=== PATIENT | male | born 1945 | race Caucasian/White ===

== ENCOUNTER 2019-02-25 14:21 | Outpatient (RCR) | payer MEDICARE, OTHER, SELFPAY | END 2019-03-25 00:01 | LOC: CR 14:21 | PROVIDERS: Family Provider Family Medicine; Visit Provider Internal Medicine Cardiovascular Disease | DX: I25.10 Atherosclerotic heart disease of native coronary artery without angina pectoris (principal) | CPT/HCPCS: 93798 ×11 ==

== ENCOUNTER 2019-04-01 14:36 | Outpatient (RCR) | payer MEDICARE, OTHER, SELFPAY | END 2019-04-25 23:59 | disposition home or self-care (01) | LOC: CR 14:36 | PROVIDERS: Family Provider Family Medicine; PCP Family Medicine; Referring Provider Thoracic Surgery (Cardiothoracic Vascular Surgery); Visit Provider Thoracic Surgery (Cardiothoracic Vascular Surgery) | DX: I25.10 Atherosclerotic heart disease of native coronary artery without angina pectoris (principal) | CPT/HCPCS: 93798 ==

== ENCOUNTER 2019-04-28 10:43 | Outpatient (RCR) | payer MEDICARE, OTHER, SELFPAY | END 2019-05-24 23:59 | disposition home or self-care (01) | LOC: CR 10:43 | PROVIDERS: Family Provider Family Medicine; PCP Family Medicine; Referring Provider Thoracic Surgery (Cardiothoracic Vascular Surgery); Visit Provider Thoracic Surgery (Cardiothoracic Vascular Surgery) | DX: I25.10 Atherosclerotic heart disease of native coronary artery without angina pectoris (principal) | CPT/HCPCS: 93798 ==

== ENCOUNTER 2019-05-26 11:22 | Outpatient (RCR) | payer MEDICARE, OTHER, SELFPAY | END 2019-06-24 23:59 | disposition home or self-care (01) | LOC: CR 11:22 | PROVIDERS: Family Provider Family Medicine; PCP Family Medicine; Referring Provider Thoracic Surgery (Cardiothoracic Vascular Surgery); Visit Provider Thoracic Surgery (Cardiothoracic Vascular Surgery) | DX: I25.10 Atherosclerotic heart disease of native coronary artery without angina pectoris (principal) | CPT/HCPCS: 93798 ==

== ENCOUNTER 2019-05-27 07:46 | Outpatient (CLI) | payer MEDICARE, OTHER, SELFPAY ==
--- NOTE | 2019-05-27 08:08 | MR_ITS ---
WS: [id number] MRI BRAIN WITH HIGH-RESOLUTION IMAGING THROUGH THE INTERNAL AUDITORY CANALS WITHOUT AND WITH CONTRAST HISTORY: RIGHT EAR TINNITUS, BILATERAL SENSORINEURAL HEARING LOSS COMPARISON: 05/11/2011 TECHNIQUE: Multiplanar, multisequence imaging is performed through the brain. Additional 3 mm imaging performed in multiple planes through the internal auditory canal. Postcontrast imaging with 17 ml's of Prohance. No acute intracranial hemorrhage, midline shift or mass effect. Focal area of hemosiderin deposition in the posterior LEFT parieto-occipital region. May be from a prior infarct. Moderate T2 and FLAIR signal hyperintensities throughout the white matter. Symmetric small vessel isc hemic disease. Additional small vessel ischemic disease in the maura bilaterally. Ventricles and extra-axial spaces are normal. No inferior displacement of cerebellar tonsils. Clivus and pituitary gland are normal. Internal and external auditory canals: Unremarkable. Cranial nerves VII and VIII complexes: Unremarkable. No enhancement or mass. Cerebellopontine angles: Normal. Paranasal sinuses: Mild mucoperiosteal thickening throughout the sinus cavities with no air-fluid lev els. Deviation of the nasal septum to the LEFT. Mastoid air cells: Normal. Calvarium and scalp: Normal. Visualized [place] and dural venous sinuses demonstrate no abnormality. Absent or hypoplasti c distal RIGHT vertebral artery. MR/MR iac's wo/w con* [id number] IMPRESSION: 1. Normal MRI internal auditory canals. No mass or abnormal enhancement. 2. Moderate chronic microvascular ischemic disease.
[2019-05-27 08:45] LABS: Blood Urea Nitrogen 13 mg/dL (8-23)
== END 2019-05-27 07:47 | disposition home or self-care (01) ==
LOC: RADWPI 07:53
PROVIDERS: Family Provider Family Medicine; PCP Family Medicine; Visit Provider Specialist
DX: I67.82 Cerebral ischemia (principal); H90.3 Sensorineural hearing loss, bilateral; H93.11 Tinnitus, right ear
CPT/HCPCS: 70553; 82565; 84520; A9579

== ENCOUNTER 2020-03-30 14:40 | Outpatient (RCR) | payer SELFPAY | END 2020-04-25 23:59 | disposition home or self-care (01) | LOC: CR 14:40 | PROVIDERS: Family Provider Family Medicine; PCP Family Medicine; Referring Provider Internal Medicine; Visit Provider Internal Medicine | DX: Z95.1 Presence of aortocoronary bypass graft (principal) ==

== ENCOUNTER 2020-04-27 12:26 | Outpatient (RCR) | payer SELFPAY | END 2020-05-23 23:59 | disposition home or self-care (01) | LOC: CR 12:26 | PROVIDERS: Family Provider Family Medicine; PCP Family Medicine; Referring Provider Internal Medicine; Visit Provider Internal Medicine | DX: Z95.1 Presence of aortocoronary bypass graft (principal) ==

== ENCOUNTER 2020-05-24 10:02 | Outpatient (RCR) | payer SELFPAY | END 2020-06-23 23:59 | disposition home or self-care (01) | LOC: CR 10:02 | PROVIDERS: Family Provider Family Medicine; PCP Family Medicine; Referring Provider Internal Medicine; Visit Provider Internal Medicine | DX: Z95.1 Presence of aortocoronary bypass graft (principal) ==

== ENCOUNTER → 2020-06-18 09:57 | Outpatient (BNVA) | payer MEDICARE, OTHER, SELFPAY | PROVIDERS: Family Provider Family Medicine; PCP Family Medicine; Visit Provider Internal Medicine Cardiovascular Disease | DX: R06.00 Dyspnea, unspecified (principal) | CPT/HCPCS: 80048; 83735; 83880 ==

== ENCOUNTER 2020-06-25 07:47 | Outpatient (CLI) | payer MEDICARE, OTHER, SELFPAY ==
[2020-06-25 08:37] VITALS: BMI 31.1
--- NOTE | 2020-06-25 08:37 | NMCV_ITS ---
NM ar perf SPECT r/s* [id number] Carlos Tom Age: 74 Gender: M : 1945 Exam Date: 06/25/2020 08:37 Ordering Phys: Susana Chamorro MD ([email or web address]) Technologist: FERNIE Steel Exam Location: [facility] Indications: CHEST PAIN STRESS TEST [facility] IMAGE PROTOCOL Rest/Stress 1 Lexiscan Day Radiopharmaceutical Dose (mCi) Administration Site Administered by Rest: Tc-99m 10.8 IV FERNIE Steel Sestamibi Stress:Tc-99m 32.8 IV FERNIE Steel Sestamibi Rest: 25-Jun-2020 60 Discovery 630 Stress: 25-Jun-2020 30 Discovery 630 0.4mg Lexiscan. Images obtained in supine and prone position. SPECT RESULTS Technical Quality: Excellent Raw Data Analysis: Normal Image Corrections: No attenuation or motion correction applied Summed Stress Score: 6 Summed Rest Score: 2 Summed Difference Score: 4 PERFUSION FINDINGS Small sized perfusion abnormality of mid inferior, mid anterolateral, apical lateral and apical mora on stress images. FUNCTIONAL RESULTS (calculated via Gated SPECT) Stress Image LV EF (%): 71 Stress EDV (mL):92 TID: 1.05 Stress ESV (mL):27 FUNCTIONAL FINDINGS: The left ventricle is normal in size. Transient Ischemia Dilatation of 1.1. There is normal left ventricular systolic function. The left ventricular ejection fraction is normal with a value of 71%. There is normal left ventricular wall thickening with no regional wall motion abnormality. Normal end diastolic and end systolic volumes. IMPRESSIONS 1. Small sized reversible perfusion abnormality of mid inferior, mid anterolateral, apical lateral and apical mora. 2. This likely represents small area of ischemia in circumflex artery territory. 3. Overall left ventricular systolic function is normal without regional wall motion abnormalities. 4. The left ventricular ejection fraction is normal with a value of 71%. 5. This finding is new when compared to old study dated 10/08/2018. Susana Chamorro MD (Electronically Signed) Final Date: 27 June 2020 22:18 S
--- NOTE | 2020-06-25 08:37 | ECG_ITS ---
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 Interpretive Statements NAME OF STUDY: LEXISCAN SESTAMIBI STRESS TEST INDICATION: Chest Pain PROCEDURE: At the baseline, the blood pressure was 135/74 mm Hg with a heart rate of 54 bpm and oxygen saturation of 95%. The electrocardiogram showed sinus bradycardia, normal axis and non specific ST depression. ??? The Lexiscan was infused over a period of 20 seconds. A total of 0.4 milligrams of Lexiscan was infused. The stress phase was continued for a total of 5 minutes. Heart rate at the end of the stress phase was 76 bpm, oxygen saturation of 97% with a blood pressure of 157/86 mm Hg. The EKG at the peak infusion revealed sinus rhythm with no significant ST-T wave changes. ??? Sestamibi was injected 20 seconds after the Lexiscan infusion. ??? Blood pressure at the end of the recovery phase was 150/80 mm Hg with a heart rate of 70 beats per minute and oxygen saturation of 96%. ??? CONCLUSION: 1. No significant EKG changes with the LexiScan infusion. 2. No LexiScan induced cardiac arrhythmia. Chest pain developed during infusion with radiation to neck and left arm and resolved by discharge. 3. Normal blood pressure and heart rate response. 4. Sestamibi/sestamibi perfusion scan pending; see separate report. Electronically Signed On 06-27-2020 21:29:18 CDT by Susana Chamorro M.D. [id number]
[2020-06-25] MEDS: regadenoson 0.4 Mg/5 ml Syringe IVP (10:20)
[2020-06-25] MEDS: aminophylline 25 mg/mL SDV 10 mL IVP (10:27)
[2020-06-25 10:52] VITALS: BP 150/80; PULSE 70
--- NOTE | 2020-06-25 10:54 | PC.NURSE ---
added notes to stress test as pt experienced side effects. ended up giving 1 dose of aminophylline and pt stated his pain was going away and felt much better. ended stress test with no symptoms stated by the patient.
== END 2020-06-25 07:48 | disposition home or self-care (01) ==
LOC: CDL 07:50
PROVIDERS: PCP Family Medicine; Visit Provider Internal Medicine Cardiovascular Disease
DX: R07.9 Chest pain, unspecified (principal); Z95.1 Presence of aortocoronary bypass graft
CPT/HCPCS: 78452; 93017; A9500; J0280; J2785

== ENCOUNTER → 2020-07-16 09:47 | Outpatient (BNVA) | payer MEDICARE, OTHER, SELFPAY | PROVIDERS: PCP Family Medicine; Visit Provider Internal Medicine Cardiovascular Disease | DX: Z20.822 Contact with and (suspected) exposure to COVID-19 (principal) | CPT/HCPCS: 87635 ==

== ENCOUNTER 2020-07-19 11:56 | Outpatient (CLI) | payer MEDICARE, OTHER, SELFPAY ==
[2020-07-19 12:40] LABS: Basophils % 0.6 %; Eosinophils % 0.6 %; Hematocrit 34.5 % (42.0-52.0); Hemoglobin 11.5 g/dL (11.7-16.6); Lymphocytes # 1.5 10^3/uL (0.8-4.8); Lymphocytes % 44.1 %; Mean Corpuscular HGB Conc 33.3 g/dL (30.0-36.0); Mean Corpuscular Hemoglobin 34.7 pg (28.0-34.0); Mean Corpuscular Volume 104.2 fL (80-94); Mean Platelet Volume 11.4 fL (7.4-10.4); Monocytes # 0.9 10^3/uL (0.2-0.9); Monocytes % 26.1 %; Nucleated Red Blood Cells % 0 %; Platelet Count 168 10^3/cmm (130-400); Red Blood Count 3.31 10^6/uL (4.1-5.3); Red Cell Distribution Width 12.6 % (12.1-15.1); White Blood Count 3.3 10^3/uL (4.0-10.0)
[2020-07-19 12:48] LABS: Neutrophils # 0.92 10^3/uL (1.8-7.7)
[2020-07-19 13:03] LABS: Blood Urea Nitrogen 21 mg/dL (8-23); Calcium 8.9 mg/dL (8.5-10.5); Carbon Dioxide 22 mmol/L (22-29); Chloride 108 mmol/L (98-107); Glucose 126 mg/dL (65-115); Osmolality Calculated 297 mOsm/kg (285-295); Sodium 141 mmol/L (136-145)
[2020-07-19 13:08] LABS: INR 1.06 (0.83-1.21); Prothrombin Time (Patient) 14.1 Seconds (12.0-15.1)
== END 2020-07-19 11:57 | disposition home or self-care (01) ==
PROVIDERS: PCP Family Medicine; Visit Provider Internal Medicine Cardiovascular Disease
DX: Z01.818 Encounter for other preprocedural examination (principal); I25.10 Atherosclerotic heart disease of native coronary artery without angina pectoris; Z95.1 Presence of aortocoronary bypass graft
CPT/HCPCS: 36415; 80048; 85025; 85610

== ENCOUNTER 2020-07-22 06:55 | Inpatient (IN) | payer MEDICARE, OTHER, SELFPAY ==
[2020-07-21 12:54] VITALS: BMI 31.3
[2020-07-22] VITALS (53 sets, daily range): BP systolic 112–158; BP diastolic 80–106; PULSE 64–126; RESP 17–36; TEMP 36.8; O2SAT 87–97; BMI 31.3
--- NOTE | 2020-07-22 07:00 | XACV_ITS ---
Exam Room: [facility] Ht: 173 cm Wt: 93 kg BSA: 2.15 m2 Gender: Male : 1945 Any Known Allergies: Iodine Exam Priority: Routine Procedure(s): Procedure Description: Diagnostic procedure Procedure Description: PCI procedure Procedure Description: YOUNG Graft Catheterization Procedure Description: Drug Eluting Coronary Stent Procedure Description: PTCA Procedure Description: Miscellaneous Procedure Description: ACT Procedure Description: Coronary Angiography Diagnostic Cath Status: Elective Diagnostic Findings * Left Main has no disease. * Circumflex has no disease. * Mid Left Anterior Descending to Distal Left Anterior Descending: severe 90% stenosis, LEONARDO: 2 flow. * Mid Left Anterior Descending: severe 90% stenosis, LEONARDO: 0 flow. * Distal Left Anterior Descending: severe 90% stenosis, LEONARDO: 3 flow. * Left Internal Mammary Artery to Distal Left Anterior Descending graft: patent. * Proximal Right Coronary Artery to Distal Right Coronary Artery: total occlusion, LEONARDO: 3 flow. * Ascending Aorta to Distal Right Coronary Artery graft: total occlusion, LEONARDO: 0 flow. * 1st Diagonal: significant 80% stenosis, LEONARDO: 3 flow. * Two grafts visualized. * Coronary angiography shows co-dominance. PCI Status: Elective Interventional Findings * 1st Diagonal: 80% stenosis treated with a AB MINI TREK 2.00X12 RX BALLOON, AB TREK 2.50X15 RX BALLOON, MDT R CORRINE 2.75X26 GEOVANNY, MDT R CORRINE 2.75X12 GEOVANNY, MDT NC EUPHORA RX 2.64N77IG BALLOON, MDT NC EUPHORA RX 3.14M61DC BALLOON, and MDT NC EUPHORA RX 3.95Y50KU BALLOON. 0% residual stenosis, LEONARDO: 3 flow. Conclusions 1. There is total occlusion coronary artery disease with two vessel disease. 2. Two coronary grafts visualized: one graft patent, and one graft occluded. 3. 1st Diagonal was treated with a Balloon, Balloon, Drug Eluting Stent, Drug Eluting Stent, Balloon, Balloon, and Balloon. 4. Indication for left heart cath: Crippling angina, worsening of shortness of breath which is lifestyle limiting, abnormal stress test. Recommendations * 1-Return to inpatient for close monitoring and routine cath care 2-Risk factor modification for secondary prevention 3-Statin and aspirin 81 mg life--long, if tolerated 4-Patient was pre-loaded with 600 mg of Plavix, continue Plavix 75mg p.o. daily for at least one year. We will assess at the end of one year again to continue if further or not 5-Continue optimal medical management 6-Follow up with Dr. Chamorro in four weeks and your primary care in 10 days. Diagnostic RX Recommendation: PCI w/o planned CABG Pressures Phase:Rest AO : 203 / 143 ( 199 ) @ 7:18:00 AM 143 / 81 ( 111 ) @ 7:49:00 AM 98 / 73 ( 86 ) @ 8:00:00 AM 117 / 49 ( 33 ) @ 8:16:00 AM 110 / 78 ( 94 ) @ 8:20:00 AM 102 / 91 ( 87 ) @ 8:33:00 AM Clinical Evaluation EBL: 5mL-10mL Procedural Details Procedure Consent Obtained. Pre-Procedure Time Out. Identified patient by full name and date of as verbalized by the patient/guarantor. Does the consent match the physician's order: Yes. Accurate & Complete Informed Consent: Yes. Inpatient/Outpatient History & Physical on Chart: Yes. If H&P is completed, is and addenduem needed: No; If yes, is the addendum complete: N/A. Visualize and Verify Site with Patient/Guarantor: N/A. Relevant Radiology Images available: Yes. Pre-op teaching completed and patient verbalized understanding. The risks, benefits, and alternatives of sedation and/or procedure were discussed by physician. The patient agrees to continue. Procedure started. [facility] Clinical Fraility Score: 3: Managing Well. 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 Chest Pain Symptom Assessment: Typical Angina Symptoms. Cardiovascular Instability: No. Correct patient, site and procedure confirmed by cath team. Current diagnosis: Stable angina. PERRLA. 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 Lungs clear x 5 lobes. IV Site on Arrival: 20 gauge in the left anticubital. IV Fluids: D5/.45% NaCl at KVO. 0 mL infused prior to pharmaceutical laboratory technician. Pre Procedural Pulses: bilateral dorsalis pedis was Doppled. Pre Procedural Pulses: bilateral posterior tibial was Doppled. Pre Procedural Pulses: bilateral radial was 1+. Oxygen started at 2liters/min via nasal canula. bilateral groins was prepped with chloroprep then draped in the usual sterile fashion. right radial was prepped with chloroprep then draped in the usual sterile fashion. Equipment: 6F - Radial. ACIST Manifold Kit Model BT 2000. Cardiac Cath Pack. Heparinized Saline (2 units/mL), 1000 mL bag. Physician arrived. Baseline sample Acquired. HR: 92 BPM. Physician scrubbed in. Immediate Pre-Procedure Time Out. Correct Patient: Yes; Correct Procedure: Yes; Correct Site: Yes; Correct Patient Position: Yes; Correct Supplies: Yes; Dried Flammable Prep: Yes; Blood Products Available: No;. Lidocaine 1% infiltrated to the right groin. Arterial access obtained with micropuncture set. A 6 citizen of [place] JL4 catheter in over wire. Multiple views taken of left coronary artery. Catheter out. A 6 [place] JR4 catheter in over wire. Catheter redirected to the YOUNG. Catheter out. [place] wire inserted. IM catheter inserted. Glidewire inserted. Wire and catheter out. A 6 citizen [place] JR4 catheter in over wire. Glidewire inserted. Wire out. Catheter out. 6 [place] XB 3.5 guide catheter was inserted over the wire. Inflation number : 1 A AB MINI TREK 2.00X12 RX BALLOON was prepped and advanced across the 1st Diag , then inflated to 14 NEYMAR for 0:20 seconds. Inflation number: 2 The AB MINI TREK 2.00X12 RX BALLOON was reinflated across the 1st Diag, to 14 NEYMAR for 0:23 seconds. 2.75mm x 26mm Stent inserted but removed undeployed and intact. Inflation number : 3 A AB TREK 2.50X15 RX BALLOON was prepped and advanced across the 1st Diag , then inflated to 14 NEYMAR for 0:25 seconds. Inflation number: 4 The AB TREK 2.50X15 RX BALLOON was reinflated across the 1st Diag, to 14 NEYMAR for 0:18 seconds. Inflation number: 5 The AB TREK 2.50X15 RX BALLOON was reinflated across the 1st Diag, to 12 NEYMAR for 0:15 seconds. Inflation number: 6 The AB TREK 2.50X15 RX BALLOON was reinflated across the 1st Diag, to 15 NEYMAR for 0:08 seconds. Inflation number: 7 The AB TREK 2.50X15 RX BALLOON was reinflated across the 1st Diag, to 10 NEYMAR for 0:06 seconds. Balloon out. Inflation Number : 8 A MDT R CORRINE 2.75X26 GEOVANNY -Lot Number# [id number] was prepped and advanced across the 1st Diag. The stent was deployed at 14 NEYMAR for 0:33 seconds. Stent balloon expiration date: 07/21/2021. Stent balloon out over wire. 2.75mm x 12mm stent inserted but removed intact. [place] wire out. Runthrough wire inserted. Inflation Number : 9 A MDT R CORRINE 2.75X12 GEOVANNY -Lot Number# [id number] was prepped and advanced across the 1st Diag. The stent was deployed at 18 NEYMAR for 0:30 seconds. Stent expiration date: 03/16/2022. Stent balloon out over wire. Inflation number : 10 A MDT NC EUPHORA RX 2.31L00TP BALLOON was prepped and advanced across the 1st Diag , then inflated to 14 NEYMAR for 0:21 seconds. Inflation number: 11 The MDT NC EUPHORA RX 2.77L46XE BALLOON was reinflated across the 1st Diag, to 16 NEYMAR for 0:27 seconds. Inflation number: 12 The MDT NC EUPHORA RX 2.72Z36HV BALLOON was reinflated across the 1st Diag, to 20 NEYMAR for 0:27 seconds. Balloon out. Inflation number : 13 A MDT NC EUPHORA RX 3.12C60CC BALLOON was prepped and advanced across the 1st Diag , then inflated to 16 NEYMAR for 0:25 seconds. Inflation number: 14 The MDT NC EUPHORA RX 3.95Q95WJ BALLOON was reinflated across the 1st Diag, to 19 NEYMAR for 0:39 seconds. Balloon out. Inflation number : 15 A MDT NC EUPHORA RX 3.07H76SH BALLOON was prepped and advanced across the 1st Diag , then inflated to 16 NEYMAR for 0:35 seconds. Inflation number: 16 The MDT NC EUPHORA RX 3.66D13FR BALLOON was reinflated across the 1st Diag, to 14 NEYMAR for 0:29 seconds. Balloon out. Fluids increased to 100ml/hr. Everything out. Sheath(s) sutured into position with 2-0 silk and sterile 4x4's and Op-site applied over the site. No oozing or signs and symptoms of hematoma noted. Arterial sheath flushed and connected to tranducer and pressure bag with heparinized saline. A Suture was successful obtaining hemostatsis at the Right Femoral artery insertion site. Post Procedure: Pulses reassessed and unchanged. PERRLA. 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 No VTE prophylaxis required. Total IV fluids: 250 mL. Contrast type used: Omnipaque 300 mgI/mL, 500 mL bottle. PCI Indication: NSTE. Post-op diagnosis: Severe CAD. Complications: None. Estimated blood loss: 5mL-10mL. Medication's Wasted: Nitro = 49.8 mg. Vital chart was stopped. Procedure completed. Patient transferred by bed to 1st floor. ACT drawn. Results 219 seconds. Therapeutic limits - pre-heparin administration 90-150 seconds and monitoring heparin during a vascular procedure >250 seconds. Medication's Wasted: Heparin = 3000 units. Access Site Site: Right Femoral artery Sheath Size: 6 Fr Hemostasis Method: Suture Hemostasis Success: Successful Procedure Medications Start: 7:44 AM Stop: 7:44 AM Medication: Versed Amount: 1 mg Route: I.V. Start: 7:44 AM Stop: 7:44 AM Medication: Fentanyl Amount: 50 mcg Route: I.V. Start: 8:03 AM Stop: 8:03 AM Medication: Versed Amount: 1 mg Route: I.V. Start: 8:03 AM Stop: 8:03 AM Medication: Fentanyl Amount: 50 mcg Route: I.V. Start: 8:31 AM Stop: 8:31 AM Medication: Nitrogylcerin Amount: 2 Sprays Start: 8:44 AM Stop: 8:44 AM Medication: Heparin Amount: 5000 units Route: I.V. Start: 8:50 AM Stop: 8:50 AM Medication: Versed Amount: 1 mg Route: I.V. Start: 8:51 AM Stop: 8:51 AM Medication: Heparin Amount: 3000 units Route: I.V. Start: 9:00 AM Stop: 9:00 AM Medication: Versed Amount: 1 mg Route: I.V. Start: 9:01 AM Stop: 9:01 AM Medication: Fentanyl Amount: 50 mcg Route: I.V. Start: 9:16 AM Stop: 9:16 AM Medication: Fentanyl Amount: 50 mcg Route: I.V. Start: 9:44 AM Stop: 9:44 AM Medication: Versed Amount: 1 mg Route: I.V. Start: 9:44 AM Stop: 9:44 AM Medication: Fentanyl Amount: 50 mcg Route: I.V. Start: 9:45 AM Stop: 9:45 AM Medication: Nitrogylcerin Amount: 2 Sprays Route: S.L. Start: 9:50 AM Stop: 9:50 AM Medication: Versed Amount: 1 mg Route: I.V. Start: 9:50 AM Stop: 9:50 AM Medication: Fentanyl Amount: 50 mcg Route: I.V. Start: 9:57 AM Stop: 9:57 AM Medication: Heparin Amount: 2000 units Route: I.V. I, the attending physician, have reviewed and verified all procedure medications. Yes, all medications given per verbal order History/Risk Factors Hypertension: Yes Dyslipidemia: No Peripheral Arterial Disease (PAD): No Myocardial Infarction (AR): No Obesity: No Renal Disease: No Tobacco Use: Former Prior Interventions PCI: No CABG: No Valve Surgery: No Report Signatures Finalized by Martha Figueroa MD on 08/02/2020 09:13 PM
--- NOTE | 2020-07-22 07:37 | W.PM.OPSFHP ---
Same Day Surgery H&P Indication for Procedure/HPI DATE OF PROCEDURE: July 22, 2020 CHIEF COMPLAINT/INDICATIONFOR SURGICAL PROCEDURE: Chest pain and anginal-like symptoms despite of optimization of medicine PREOP DIAGNOSIS: Angina, abnormal stress test in patient with CABG PLANNED PROCEDRUE: Operation Date: 07/22/20 07:00 Proposed Procedures p left Cardiac Catheterization 15612 r07.89(Left) - Martha Figueroa MD 74-year-old male past medical history significant for hypertension hyperlipidemia chronic anemia with baseline hemoglobin between 9-11 diabetes mellitus and history of CABG in 2019 for worsening of angina on daily basis despite of optimization of medicine underwent stress test which showed small area of reversibility in the inferior and lateral anterolateral aspects of the left ventricle was referred to us for left heart cath by Dr. Chamorro since his chest pain is not going away and getting worse day by day. He is on beta-rosy statin ARB Lasix spironolactone and isosorbide mononitrate. I have personally explained all risk benefit and alternative for the procedure. Patient understand dual antiplatelet therapy to be continued for at least 1 year. He understand risk for major minor bleed requiring transfusion, risk for stroke arrhythmia urgent emergent bypass surgery, risk of . He would like to proceed with it. Medications/Allergies* Home Medications Medication Instructions Recorded Confirmed Type fluticasone 500 mcg-salmeterol 50 1 inh INHALATION BID 05/08/19 07/21/20 History mcg/dose blistr powdr for inhalation glimepiride 4 mg tablet 4 mg PO BID tab 05/08/19 07/21/20 History ipratropium 20 mcg-albuterol 100 1 puff INHALATION Q6H 05/08/19 07/21/20 History mcg/actuation mist for inhalation losartan 100 1 tab PO DAILY 05/08/19 07/21/20 History mg-hydrochlorothiazide 25 mg tablet metformin 500 mg tablet 500 mg PO BID 05/08/19 07/21/20 History omeprazole 20 mg capsule,delayed 20 mg PO DAILY 05/08/19 07/21/20 History release simvastatin 40 mg tablet 40 mg PO DAILY 05/08/19 07/21/20 History spironolactone 25 mg tablet 25 mg PO DAILY 05/08/19 07/21/20 History tamsulosin 0.4 mg capsule 0.4 mg PO DAILY 05/08/19 07/21/20 History Allergies/Adverse Reactions Allergy/AdvReac Type Severity Reaction Status Date / Time morphine Allergy Unknown ADR/ALGY-Pa Verified 04/21/20 09:38 lpitations iodine Allergy Unknown Verified 07/08/20 11:27 Current Medications: Generic Name Dose Route Start Last Admin Trade Name Freq PRN Reason Stop Dose Admin Sodium Chloride 1,000 mls @ 50 mls/hr 07/22/20 06:00 07/22/20 06:47 Sodium Chloride 0.9% IV 07/23/20 01:59 Not Given .Q20H ONE Pertinent History/Comorbid Conditions* Medical History (Updated 05/09/19 @ 12:07 by Manuel Davidson MD) ASHD (arteriosclerotic heart disease) Carotid stenosis, bilateral Diabetes Dizziness HTN (hypertension) Surgical History (Updated 05/09/19 @ 12:03 by Manuel Davidson MD) S/P CABG (coronary artery bypass graft) Two-vessel coronary bypass surgery Social History Smoking and tobacco status: former smoker Household members: family Marital status: service: No Current occupational status: retired Pertinent Exam Findings alert, oriented x 3 and regular rate & rhythm Conscious Sedation Assessment PATIENT ASSESSED PRIOR TO SEDATION, WITH NO CHANGE NOTED: Yes AIRWAY EVAL/ANESTHESIA PLAN: ASA II, Risks, benefits & alternatives of sedation and/or procedure discussed and Patient agrees to continue as planned Recommendations Surgery/Procedure today Coding Level of Care Code Acute Renewable Energy Engineer for Morelia Stauffer
[2020-07-22] MEDS: sodium chloride 0.9% 1,000 ML 100 ML IV (10:47)
--- NOTE | 2020-07-22 11:03 | ECG_ITS ---
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 Measurements Intervals Evans Rate: 100 P: 64 MO: 222 QRS: 22 QRSD: 105 T: 120 QT: 365 QTc: 472 Interpretive Statements SINUS TACHYCARDIA WITH FIRST DEGREE AV BLOCK INFERIOR MYOCARDIAL INFARCTION, PROBABLY OLD ST DEVIATION AND MODERATE T-WAVE ABNORMALITY, CONSIDER LATERAL ISCHEMIA Compared to ECG 11/27/2018 06:07:05 First degree AV block now present Myocardial infarct finding now present T-wave abnormality now present Possible ischemia now present Sinus rhythm no longer present Sinus arrhythmia no longer present Electronically Signed On 07-23-2020 7:46:05 CDT by Susana Chamorro M.D. [id number]
[2020-07-22] MEDS: clopidogrel 300 mg Tablet PO (11:08)
[2020-07-22] MEDS: nitroglycerin 0.4 mg sublingual Tablet SUBLINGUAL (11:08)
--- NOTE | 2020-07-22 11:10 | PC.CHAP ---
Pastoral Care Encounter/Spiritual Assessment Type of Contact [] Declined senior systems programmer visit [] Patient/Family/Request visit [] Outpatient visit [x] Follow-up visit [] Physician referral [] Code/Alert [x] Routine visit [] Staff referral [] Actively dying [] Patient sleeping [] Family support [] [] Out of room [] Palliative care [] [x] Receiving care in room [] Pre-surgical visit [] Trauma [] Long length of stay [] ICU visit [] Other: Relational/Emotional Strength [] Patient feels connected with others/family/visitors/staff [x] Distress [] Loneliness/isolation [] Abandonment Spirituality of Patient [] Person of Jaqueline [] Attends Mosque of their Jaqueline [] Believes in Prayer [] Reads Bible or Jainism materials [] There are Spiritual issues to be addressed Marine Geologist Interventions [] Prayer [] Active listening [] Non-anxious presence [] Spiritual/emotional support [] Crisis/trauma care [] Spiritual counseling [] Bereavement support [] Provided bereavement packet [] Provided Bible/devotional materials [] Provided toy/stuffed animal, coloring book to patient or family member [] Provided Communion [] Anointing/[place] [] Salvation [] Completed spiritual assessment [] Other: Impact on Illness or Injury [] Angry [] Fearful [] Anxious [] Often cries [] Exhaustion [] Unable to work [] Unable to attend religious [] Unable to walk/stand [] Unable to read [] Unable to drive [] Unable to eat/drink [] Unable to sleep [] Unable to be with family [] Patient intubated [] Other: Summary had visit with had jai bowens Follow-up visit Time spent with patient 10 mins
--- NOTE | 2020-07-22 11:11 | PC.NURSE ---
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
--- NOTE | 2020-07-22 11:23 | XACV_ITS ---
Exam Room: [facility] Ht: 173 cm Wt: 93 kg BSA: 2.15 m2 Gender: Male : 1945 Any Known Allergies: Iodine Exam Priority: Routine Procedure(s): Procedure Description: Diagnostic procedure Procedure Description: Coronary Angiography Diagnostic Cath Status: Urgent PCI Status: Urgent Conclusions 1. Selective angiogram performed to assess the patency of the diagonal branch which was intervened at this morning after patient continues to complain regarding chest pain shortness of breath along with pulmonary edema.Patient was brought to the Gravity Prospector. Right groin sheath was in place. Right groin sheath was exchanged with 6 Estonian sheath. Using XB guide angiogram was performed.Diagonal branch remains patent without any thrombosis. Good LEONARDO-3 flow was observed. Rest of anatomy as per report from this morning.. Recommendations * Continue post-cath care and medical management. Diagnostic RX Recommendation: medical therapy and/or counseling Pressures Phase:Rest AO : 167 / 114 ( 139 ) @ 10:49:00 AM Clinical Evaluation EBL: 5mL-10mL Procedural Details Identified patient by full name and date of as verbalized by the patient/guarantor. Does the consent match the physician's order: N/A Emergent; Informed Consent not obtained due to time critical life threat. Accurate & Complete Informed Consent: N/A Emergent; Informed Consent not obtained due to time critical life threat. Inpatient/Outpatient History & Physical on Chart: N/A Emergent; Informed Consent not obtained due to time critical life threat. If H&P is completed, is and addenduem needed: N/A Emergent; Informed Consent not obtained due to time critical life threat; If yes, is the addendum complete: N/A Emergent; Informed Consent not obtained due to time critical life threat. Visualize and Verify Site with Patient/Guarantor: N/A. Relevant Radiology Images available: N/A Emergent; Informed Consent not obtained due to time critical life threat. Pre-op teaching completed and patient verbalized understanding. The risks, benefits, and alternatives of sedation and/or procedure were discussed by physician. The patient agrees to continue. Procedure started. Patient brought back to production laborer due to chest pain. Correct patient, site and procedure confirmed by cath team. Current diagnosis: Chest Pain. PERRLA. Strong, equal hand pbx installer bilaterally. Lungs clear x 5 lobes. IV Site on Arrival: 20 gauge in the right anticubital. IV Fluids: 0.9% NaCl at KVO. 0 mL infused prior to production laborer. Oxygen started at 2liters/min via nasal canula. bilateral groins was prepped with chloroprep then draped in the usual sterile fashion. Baseline sample Acquired. HR: 100 BPM. Equipment: 6F - Femoral. Cardiac Cath Pack. ACIST Manifold Kit Model BT 2000. Heparinized Saline (2 units/mL), 1000 mL bag. Kit, Micropuncture. Physician arrived. Physician scrubbed in. Immediate Pre-Procedure Time Out. Correct Patient: Yes; Correct Procedure: Yes; Correct Site: Yes; Correct Patient Position: Yes; Correct Supplies: Yes; Dried Flammable Prep: Yes; Blood Products Available: No;. Sheath still in place from prior procedure. Lidocaine 1% infiltrated to the right groin. 6FR sheath exchanged for a new 6FR sheath. 6 syrian XB 3.5 guide catheter was inserted over the wire. Multiple views taken of left coronary artery. Guide catheter out. Sheath(s) sutured into position with 2-0 silk and sterile 4x4's and Op-site applied over the site. No oozing or signs and symptoms of hematoma noted. Arterial sheath flushed and connected to tranducer and pressure bag with heparinized saline. Post Procedure: Pulses reassessed and unchanged. PERRLA. Strong, equal hand pbx installer bilaterally. No VTE prophylaxis required. Complications: None. Post-op diagnosis: CAD. Estimated blood loss: 5mL-10mL. Procedure completed. Patient transferred by bed to 1st floor. Vital chart was stopped. Medication's Wasted: Lidocaine 1% = 18 mL. Medication's Wasted: Nitro = 49.8 mg. Medication's Wasted: Heparin = 1000 units. Procedure Medications Start: 11:50 AM Stop: 11:50 AM Medication: Nitrogylcerin Amount: 200 mcg Route: I.C. I, the attending physician, have reviewed and verified all procedure medications. Yes, all medications given per verbal order History/Risk Factors Hypertension: Yes Dyslipidemia: No Peripheral Arterial Disease (PAD): No Myocardial Infarction (DC): No Obesity: No Renal Disease: No Tobacco Use: Former Prior Interventions PCI: No CABG: No Valve Surgery: No Report Signatures Finalized by Martha Figueroa MD on 08/02/2020 09:43 PM
[2020-07-22] MEDS: nitroglycerin drip 50 MG/250 ML PREMIX IV (13:10)
--- NOTE | 2020-07-22 17:00 | PC.NURSE ---
sheath removed per telephone instructions from Dr. mckeon to obtain PTT if >45 pull sheath per protocol Sheath removed from right groin pressure held for 20 min v/s stable throughout patient remained alert oriented no hematoma noted
--- NOTE | 2020-07-22 17:30 | PC.NURSE ---
Addendum entered by Mandi Ardon RN 07/22/20 21:04: verbal instructions also obtained to start accu check and med sliding scale coverage and hold metformin Original Note: Dr mckeon to bedside to check on patient HR 125 patient experiencing SOB verbal instructions at bedside to give Metoprolol 50mg PO now give PRN xanax obtain EKG and 1 view chest xray give lasix 60mg IVP now up nitro from 10 to 15 RT called to bedside to place Bi pap and obtain ABG all orders carried out during lasix IVP patient had run of v tach and became symptomatic verbal instructions to obtain ICU bed for closer monitoring patient stabilizing
--- NOTE | 2020-07-22 17:53 | ECG_ITS ---
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 Measurements Intervals [place] Rate: 125 P: -72 NH: 140 QRS: -38 QRSD: 145 T: 37 QT: 324 QTc: 469 Interpretive Statements SINUS TACHYCARDIA WITH FREQUENT PVC'S POSSIBLE ANTERIOR MYOCARDIAL INFARCTION, OF INDETERMINATE AGE INFERIOR MYOCARDIAL INFARCTION,OF INDETERMINATE AGE ST DEPRESSION, CONSIDER SUBENDOCARDIAL INJURY [0.1+ mV ST DEPRESSION] Compared to ECG 07/22/2020 11:07:44 ST (T wave) deviation now present Sinus tachycardia no longer present First degree AV block no longer present T-wave abnormality no longer present Possible ischemia no longer present Myocardial infarct finding still present Electronically Signed On 07-23-2020 7:41:03 CDT by Susana Chamorro M.D. [id number] f
[2020-07-22] MEDS: isosorbide mononitrate ER 30 mg Tablet PO (17:55)
[2020-07-22] MEDS: metoprolol tartrate 25 mg Tablet PO ×2 (17:55→17:57)
[2020-07-22] MEDS: ALPRAZolam 0.25 mg Tablet PO (18:05)
--- NOTE | 2020-07-22 18:07 | XRR_ITS ---
PROCEDURE INFORMATION: Exam: XR Chest Exam date and time: 07/22/2020 6:23 PM Age: 74 years old Clinical indication: Device placement; Ett placement (vent status); Additional info: Shortness of breath TECHNIQUE: Imaging protocol: XR of the chest. Views: 1 view. COMPARISON: CR Chest 1 [place] [id number] 11/30/2018 4:52 AM FINDINGS: Lungs: Unremarkable. No consolidation. Pleural spaces: Unremarkable. No pleural effusion. No pneumothorax. Heart/Mediastinum: Unremarkable. No cardiomegaly. Bones/joints: Metallic sternotomy wires are in place. There is kyphoplasty in the L1 vertebral body There is nose clearly visible endotracheal tube present. XR/XR chest 1V portable [id number] IMPRESSION: 1. No acute findings. 2. Status post sternotomy 3. Kyphoplasty L1 vertebral body 4. An ET tube is not optimally visualized.
[2020-07-22] MEDS: FUROsemide 10 mg/mL SDV 10mL 60 MG IVP (18:13)
[2020-07-22 18:36] LABS: ABG PCO2 27.6 mmHg (35-45); Base Excess ABG -6.6 mmol/L (-2.0-2.0); Blood Gas Sample Type Arterial; Carboxyhemoglobin 0.7 %THgb (0.4-20.1); HCO3 ABG 16.9 mmol/L (22-26); HGB O2 Sat 95.5 % (95-100); Ionized Calcium Level - ABG 1.2 mmol/L (1.1-1.4); Methemoglobin 0.4 % (0.4-1.5); Oxygen Saturation ABG 96.6; PO2 ABG 81.4 mmHg (80.0-100.0); Potassium Level - ABG 4.5 mmol/L (3.5-5.0); Total Hemoglobin 12.7 g/dL (14-18)
[2020-07-22 18:37] LABS: Alveolar-Arterial Oxygen Gradi 21.7 mmHg (5-10); Blood Gas Operator Identificat ED; Blood Gas Sample Site Brachial, right; Oxygen Device BIPAP
--- NOTE | 2020-07-22 19:22 | P.PN_ITS ---
Subjective Subjective: Interval history: Post PCI patient started complaining of chest pain he was taken back to the Database Marketing Analyst noted to have patent diagonal stents. He was noted to have chronically occluded RCA mild distal circumflex has 90% stenosis which is small caliber vessel beyond the stenosis. Since it has collaterals from left to left we will left this for medical management. 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 Vitals/I&O/Wt Last Vital Signs Temp 98.2 F 07/22/20 06:34 Pulse 123 H 07/22/20 18:10 Resp 17 07/22/20 14:37 BP 152/94 07/22/20 14:00 Pulse Ox 94 07/22/20 18:10 07/22/20 07/22/20 07/22/20 06:59 14:59 22:59 Intake Total 2.75 / 2.75 Output Total 600 / 600 Balance -600 / -600 2.75 / -597.25 Weight last 48 hrs Weight 206 lb Weight 206 lb Physical Exam Narrative: EXAM NARRATIVE: GENERAL: Patient is alert, awake and oriented x3. Moderately distressed NECK: No jugular vein distension. HEENT: No cyanosis. No icterus. No pallor. HEART: Regular S1 and S2. No murmur, rub or gallop. LUNGS: Clear to auscultate bilaterally. ABDOMEN: Soft, nontender and nondistended. Positive bowel sounds. No guarding, rebound or tenderness. CENTRAL NERVOUS SYSTEM: Grossly nonfocal. EXTREMITIES: Lower extremities without edema bilaterally. A&P Assessment and plan (1) ASHD (arteriosclerotic heart disease): Status post drug-eluting stent to proximal to mid diagonal branch for significant 90% eccentric highly calcified stenosis. Post PCI patient was taken back to the Database Marketing Analyst due to recurrent chest pain noted to have patent stents. Patient has been loaded with 300 mg of Plavix. Later patient did fine however towards the evening patient went into respiratory distress. He was noted to be in pulmonary edema BiPAP was started IV Lasix was given he had short runs of ventricular tachycardia he was given metoprolol. Currently he is stabilizing blood pressure is stable he denies any chest pain and now on BiPAP he is feeling better hopefully with good diuresis left ventricular end-diastolic pressure will also reduce and he will start feeling better. We will continue to monitor him at this point we may will move him to ICU. Status: Acute (2) HTN (hypertension): Patient has been started on IV nitro drip due to moderately elevated blood pressure and pulmonary edema Status: Acute Qualifiers: Hypertension type: essential hypertension Qualified Code(s): I10 - Essential (primary) hypertension Attestations Medical Necessity Statement*: Require continuation hospitalization for above defined care Coding Level of Care Code Acute Stable Helper for Chg Fwd History Comprehensive Exam Comprehensive Medical Decision Making High Complexity Diagnoses ASHD (arteriosclerotic heart disease) I25.10 HTN (hypertension) I10 Hypertension type: essential hypertension
[2020-07-22 20:37] LABS: Glucose Point of Care 285 mg/dL (70-110)
--- NOTE | 2020-07-22 20:52 | PC.NURSE ---
patient transferred to ICU 12 patient alert oriented and in stable condition upon transfer all belonging sent with patient attempted to notify daughter Corrie no answer message left to return phone call
--- NOTE | 2020-07-22 21:09 | PC.NURSE ---
ICU arrival: Pt arrived to ICU at 2014, via bed as a CSU inhouse transfer. Accompanied by CSU nursing staff X2. Nursing staff X4 transferred pt into ICU bed without incident. Pt arrived on RM air with SPO2 status @ 86%, and was then placed on 4L NC, to which O2 sat increased up to 92-93%. Some c/o chest pain verbalized by pt, and nitro gtt was reinitiated. Right groin has some swelling at the site of where the sheath was placed/pulled earlier in dayshift. No bruising or saturation to dressing noted. MD Henry came to bedside for rounding of patient. No other orders received at this time. Personal effects include clothing, shoes, and cell phone and were all placed at bedside with pt. Room orientation completed, with instructions on use of call light.
--- NOTE | 2020-07-22 21:18 | PC.NURSE ---
CODE STATUS; RN discussed with patient regarding his personal wishes of code status. RN asked if in the event his heart was to stop beating, would he want life saving measures including CPR, Medications, and Intubation in efforts to revive him. Patient stated he wanted healthcare staff to try and do all that is necessary in efforts to save his life, if in the event a code were to happen. Conversation, and a new order was placed inside patient chart to reflect these wishes.
--- NOTE | 2020-07-22 21:18 | PC.NURSE ---
CODE STATUS; RN discussed with patient regarding his personal wishes of code status. RN asked if in the event his heart was to stop beating, would he want life saving measures including CPR, Medications, and Intubation in efforts to revive him. Patient stated he wanted healthcare staff to try and safe him, and do all that is necessary in efforts to safe his life if in the event a code were to happen. Conversation, and a new order was placed inside patient chart to reflect those wishes.
[2020-07-22] MEDS: acetaminophen 325 mg Tablet 650 MG PO (21:58)
[2020-07-23] VITALS (65 sets, daily range): BP systolic 82–117; BP diastolic 65–85; PULSE 84–123; RESP 1–48; O2SAT 87–98
--- NOTE | 2020-07-23 04:40 | PC.NURSE ---
New Orders; RN phoned MD Henry to update on pt status. 200mL u/o and new lung sounds throughout. Patient stated he believed his pain located in his chest, was pretty close in nature to what he felt at time of previous cardiac episode the day prior. New orders given for Fentanyl IVP Q2-4Hr as needed, Lasix IVP Once, and to complete a bladder scan. 154mL in urine found in bladder through scan.
[2020-07-23] MEDS: fentaNYL 50 mcg/mL INJ 2mL 25 MCG IVP ×3 (04:48→16:13)
[2020-07-23] MEDS: FUROsemide 10 mg/mL SDV 10mL 60 MG IVP (04:52)
[2020-07-23] MEDS: ondansetron 2 mg/ML SDV 2 mL 4 MG IVP ×2 (05:59→20:29)
--- NOTE | 2020-07-23 06:33 | PC.NURSE ---
New orders; Patient was placed on Bipap per MD Henry orders for about 1hr in total overnight. RN then found pt taking bipap mask off, and c/o n/v suddenly. Bipap was removed, and pt was placed back on 4L NC. New orders for Zofran, and to change pt diet order to NPO, except sips of water.
--- NOTE | 2020-07-23 07:28 | ECG_ITS ---
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 Measurements Intervals [place] Rate: 93 P: 18 SD: 181 QRS: 108 QRSD: 110 T: 75 QT: 366 QTc: 456 Interpretive Statements SINUS RHYTHM WITH OCCASIONAL VENTRICULAR PREMATURE COMPLEXES MARKED RIGHT AXIS DEVIATION [QRS AXIS > 100] POSSIBLE ANTEROLATERAL MYOCARDIAL INFARCTION [30 ms Q WAVE IN I/aVL/V3-V6], OF INDETERMINATE AGE Compared to ECG 07/22/2020 18:00:52 Ventricular premature complex(es) now present Right-axis deviation now present Sinus tachycardia no longer present ST (T wave) deviation no longer present Myocardial infarct finding still present Electronically Signed On 07-23-2020 19:17:54 CDT by Goreg Morton M.D. [email or web address]/store/[id number]
--- NOTE | 2020-07-23 07:28 | XR_ITS ---
WS: [id number] Exam: XR chest 1V portable [id number] Date/Time of Exam: 07/23/2020 7:35 AM Reason For Exam: chf Comparison 07/22/2020. Infiltrate in the right lower lobe has developed since the previous exam. Heart size is normal. Pulmo nary vascularity is increased. There are multiple ill-defined nodules scattered throughout both lungs with coarsening of interstitial markings. No pleural effusions or pneumothorax. The mediastinum is n ot widened. Status post CABG surgery. Monitoring leads superimpose the chest. XR/XR chest 1V portable [id number] IMPRESSION: 1. Infiltrate in the right basal region. 2. Increased pulmonary vascularity with reticular nodular a pulmonary pattern. Septic pulmonary emboli or metastatic pulmonary disease could have this appeara nce. Further workup with contrast CT scanning of the chest might be a considera tion.
[2020-07-23 07:30] LABS: Glucose Point of Care 258 mg/dL (70-110)
--- NOTE | 2020-07-23 07:32 | P.PN_ITS ---
Subjective Subjective: Interval history: Patient complained of worsening of shortness of breath after he completed bedrest, he was noted to be in pulmonary edema. Started on BiPAP given IV Lasix, nitro drip was continued. He was also moved to ICU for close monitoring. Overnight he did fine except early this morning he started having more nausea. Urine output total -450. Vitals/I&O/Wt Last Vital Signs Temp 98.2 F 07/22/20 06:34 Pulse 97 07/23/20 07:11 Resp 18 07/23/20 07:06 BP 118/83 07/22/20 20:02 Pulse Ox 97 07/23/20 07:06 07/22/20 07/23/20 07/23/20 22:59 06:59 14:59 Intake Total 1136.142 / 1136.142 300 / 1436.142 Output Total 650 / 1925 150 / 2075 450 / 450 Balance 486.142 / -788.858 150 / -638.858 -450 / -450 Weight last 48 hrs Weight 206 lb Weight 206 lb Physical Exam Narrative: EXAM NARRATIVE: GENERAL: Patient is alert, awake and oriented x3. Moderately distressed NECK: No jugular vein distension. HEENT: No cyanosis. No icterus. No pallor. HEART: Regular S1 and S2. No murmur, rub or gallop. LUNGS: Clear to auscultate bilaterally. ABDOMEN: Soft, nontender and nondistended. Positive bowel sounds. No guarding, rebound or tenderness. CENTRAL NERVOUS SYSTEM: Grossly nonfocal. EXTREMITIES: Lower extremities without edema bilaterally. A&P Assessment and plan (1) ASHD (arteriosclerotic heart disease): For worsening of unstable angina patient is status post drug-eluting stent to proximal to mid diagonal branch for significant 90% eccentric highly calcified stenosis. Post PCI patient was taken back to the Wash Crew Person due to recurrent chest pain noted to have patent stents. Patient has been loaded with 300 mg of Plavix. Later patient did fine however towards the evening patient went into respiratory distress. He was noted to be in pulmonary edema BiPAP was started IV Lasix was given he had short runs of ventricular tachycardia he was given metoprolol. Currently he is stabilizing blood pressure is stable he denies any chest pain and now on BiPAP he is feeling better hopefully with good diuresis left ventricular end-diastolic pressure will also reduce and he will start feeling better. We will continue to monitor him at this point we may will move him to ICU. On today's visit patient sitting by the bedside he had rough muskrat trapper with described chest pain and nausea. His breathing is better. There is also question regarding prostate enlargement and retention of the urine. We will ask for bladder scan. I will get x-ray chest CBC BMP and BNP. He has been given another round of IV Lasix. Twelve-lead EKG will be obtained. Currently he appeared to be stable. Patient has extensive coronary artery disease with highly calcified vessel he has CABG in 2019. During this angiogram he was noted to have chronically occluded SVG to RCA RCA is highly calcified proximally occluded vessel not amenable to intervention. Diagonal was very torturous highly calcified vessel not amenable to atherectomy however we did extensive balloon angioplasty followed by 2 overlapping stent placement postdilated at high NEYMAR with noncompliant balloon for proper approximation. We will continue aspirin Plavix I will add ranolazine patient has extensive multiple tandem lesion in the LAD. Dr. Mejia's note confirmed the high calcification of the vessels which in his case unfortunately is a long-term problem. He also has small vessel disease and element of anxiety. At this point I will add ranolazine. Continue to optimize medicine including beta-rosy isosorbide mononitrate. Further plan will be advised as per progress of the patient. I have detailed discussion with the patient in yesterday with his family. Their full understanding of the disease. 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
[2020-07-23] MEDS: isosorbide mononitrate ER 30 mg Tablet PO ×2 (08:51→18:19)
[2020-07-23] MEDS: ranolazine (12HR) 500 mg Tablet PO ×2 (08:51→18:19)
[2020-07-23] MEDS: tamsulosin 0.4 mg Capsule PO (08:51)
[2020-07-23 08:52] LABS: Blood Urea Nitrogen 30 mg/dL (8-23); Calcium 8.7 mg/dL (8.5-10.5); Carbon Dioxide 18 mmol/L (22-29); Chloride 101 mmol/L (98-107); Glucose 226 mg/dL (65-115); NT Pro B Type Natriuretic Pept 16832 pg/mL (0-125); Osmolality Calculated 291 mOsm/kg (285-295); Sodium 134 mmol/L (136-145)
[2020-07-23] MEDS: FUROsemide 20 mg Tablet PO (08:52)
[2020-07-23] MEDS: metoprolol tartrate 25 mg Tablet PO ×2 (08:52→18:20)
[2020-07-23 09:03] LABS: Basophils % 0.1 %; Hematocrit 40.2 % (42.0-52.0); Hemoglobin 13.4 g/dL (11.7-16.6); Lymphocytes # 0.9 10^3/uL (0.8-4.8); Lymphocytes % 5.5 %; Mean Corpuscular HGB Conc 33.3 g/dL (30.0-36.0); Mean Corpuscular Hemoglobin 34.9 pg (28.0-34.0); Mean Corpuscular Volume 104.7 fL (80-94); Mean Platelet Volume 11.7 fL (7.4-10.4); Monocytes # 3.5 10^3/uL (0.2-0.9); Monocytes % 21.2 %; Neutrophils # 11.79 10^3/uL (1.8-7.7); Neutrophils % 72.2 %; Nucleated Red Blood Cells % 0 %; Platelet Count 244 10^3/cmm (130-400); Red Blood Count 3.84 10^6/uL (4.1-5.3); Red Cell Distribution Width 13.2 % (12.1-15.1); White Blood Count 16.3 10^3/uL (4.0-10.0)
[2020-07-23 11:04] LABS: Glucose Point of Care 238 mg/dL (70-110)
[2020-07-23 16:36] LABS: Glucose Point of Care 180 mg/dL (70-110)
--- NOTE | 2020-07-23 17:30 | CTR_ITS ---
PROCEDURE INFORMATION: Exam: CT Head Without Contrast Exam date and time: 07/23/2020 5:35 PM Age: 74 years old Clinical indication: Altered mental status/memory loss; Confusion or disorientation; Additional info: AMS TECHNIQUE: Imaging protocol: Computed tomography of the head without contrast. Total images: 192 Radiation optimization: All CT scans at this facility use at least one of these dose optimization techniques: automated exposure control; mA and/or kV adjustment per patient size (includes targeted exams where dose is matched to clinical indication); or iterative reconstruction. COMPARISON: CT head wo con* [id number] 10/02/2015 10:10 AM RADIATION DOSE METRICS: Total DLP (mGy-cm): 1640.61 FINDINGS: Brain: No evidence of active or acute intracranial pathologic process, hemorrhage, or trauma. Moderate small vessel ischemic disease with senile periventricular leukomalacia. No mass effect. No midline shift. Atrophic changes not inconsistent with the patient's chronological age. Cerebral ventricles: No ventriculomegaly. Bones/joints: Unremarkable. No acute fracture. Paranasal sinuses: Visualized sinuses are unremarkable. No fluid levels. Mastoid air cells: Visualized mastoid air cells are well aerated. Soft tissues: Unremarkable. Other findings: Vertebrobasilar arteriosclerosis. CT/CT head wo con* [id number] IMPRESSION: No evidence of active or acute intracranial pathologic process, hemorrhage, or trauma. Radiation Dose CTDIVOL = (mGy): DLP = 1640.61 (mGy-cm)
--- NOTE | 2020-07-23 17:30 | CTR_ITS ---
PROCEDURE INFORMATION: Exam: CT Chest Without Contrast; Diagnostic Exam date and time: 07/23/2020 5:35 PM Age: 74 years old Clinical indication: Dyspnea; Prior surgery; Surgery date: 6+ months; Surgery type: Cabg; Patient HX: C/O difficulty breathing; Additional info: Dyspnea, possible pna, septic embolic appearance? (ghulam) TECHNIQUE: Imaging protocol: Diagnostic computed tomography of the chest without contrast. Radiation optimization: All CT scans at this facility use at least one of these dose optimization techniques: automated exposure control; mA and/or kV adjustment per patient size (includes targeted exams where dose is matched to clinical indication); or iterative reconstruction. COMPARISON: CTA Chest-Pulmonary Emb [id number] 10/08/2018 3:35 PM RADIATION DOSE METRICS: Total DLP (mGy-cm): 902.41 FINDINGS: Lungs: There are calcified granulomas in both lungs. There is some patchy areas of ground-glass opacity in both lungs, mostly peripheral. . These may represent some infectious or inflammatory disease versus unusual distribution of edema. There are some areas of subsegmental atelectasis in both lungs. There is mild thickening of the interlobular septa which consistent with some interstitial edema Pleural spaces: There are small to moderate bilateral pleural effusions, larger on the right than on the left. Heart: Sternotomy wires and mediastinal surgical clips are present, consistent with previous coronary arterial bypass grafting. Aorta: Unremarkable. No aortic aneurysm. Lymph nodes: There are small paratracheal and AP window lymph nodes but no adenopathy. Spleen: The spleen demonstrates punctate calcifications, consistent with remote granulomatous organism exposure. Kidneys and ureters: This study was done without the use of intravenous contrast, however the imaged upper poles of both kidneys demonstrate dense cortical nephrograms and also some excreted contrast. Please correlate for any history of contrast administration for other procedures such as recent cardiac catheterization. The dense cortical nephrograms could indicate acute kidney injury. Further evaluation with appropriate laboratory studies is suggested. Bones/joints: Unremarkable. No acute fracture. Soft tissues: There is moderate bilateral gynecomastia. Other findings: There is kyphoplasty at L1 unchanged from previous. Chronic findings of kyphoplasty at L1 are again identified. CT/CT chest wo con [id number] IMPRESSION: 1. Mild interstitial edema and bilateral pleural effusions consistent with the clinical history of congestive failure. 2. Mild ground-glass opacities in both lungs which could represent infectious or inflammatory disease including viral infection. These are suggestive of but not entirely classic for COVID-19. 3. Persistent renal cortical nephrograms of uncertain age in etiology. Please correlate for any signs of renal insufficiency. COMMENTS: THIS REPORT CONTAINS FINDINGS THAT MAY BE CRITICAL TO PATIENT CARE. The findings were verbally communicated via telephone conference with HALLE FERRER at 6:27 PM CDT on 07/23/2020. The findings were acknowledged and understood. Radiation Dose CTDIVOL = (mGy): DLP = 902.41 (mGy-cm)
[2020-07-23] MEDS: piperacillin-tazobactam 3.375 GM in sodium chloride 0.9% (plus) 50 ML IV (20:30)
--- NOTE | 2020-07-23 20:35 | PM.CONSULT ---
Providers/Reason For Consult Consulting Physican/Specialty*: Hospitalist Reason for Consult*: Pneumonia, lung infiltrates Attending Physician: Martha Figueroa MD Primary Care Provider: Michael Garcia MD History of Present Illness History of Present Illness Pleasant 74-year-old gentleman with history of coronary disease, CABG in 2019, ischemic cardiomyopathy, DM 2, HLD, asthma, chronic dizziness (was told has BPPV by ENT) was admitted for assessment of management of worsening anginal symptoms and abnormal stress test. He underwent coronary angiography with stent deployment to proximal to mid diagonal branch due to 90% stenosis. Experiencing chest pain after the procedure, he was taken back to [facility], with stents found to be patent. He was subsequently noted with some dyspnea, shallow breaths, with concern for pulmonary edema received IV Lasix. ABG 7.4/27.6/81.4/16.9 on 40% FiO2. Breathing was supported with BiPAP. He subsequently also had nausea, vomited. This morning requiring nasal cannula oxygen support, 2-3 L, with noted leukocytosis 16.3, predominantly neutrophilic, sinus tachycardia. Afebrile. Reports mild cough. Denies chest pain. Reports with shortness of breath having some pain on inspiration which is somewhat radiating to his back. Reports while he was on BiPAP was having some phlegm secretion but could not spit it up and try to swallow it. Currently denies any phlegm production. Noted 10-15 beats of V. tach. Amiodarone was considered and ordered, however, he did not actually receive it. This morning his other labs include hemoglobin of 13.4, platelets 244. Sodium 134, potassium 5, chloride 101, bicarbonate 18, anion gap 20, BUN 30, creatinine 1.5. Glucose 226. Calcium 8.7, NT proBNP 16,832. He currently overall is feeling somewhat better. Nausea has resolved. He is still bothered by shortness of breath, pleuritic discomfort on inspiration. He denies headache, denies muscle aches or chills. Denies diarrhea. He denies any history of sleep apnea, denies history being told of snoring or stopping to breathe at night. Review of Systems Const: Reports: malaise; Denies: fever(s), chills or body aches Eyes: Reports: other (Reports chronic/recurrent vertigo, not currently.); Denies: change in vision or eye redness ENMT: Denies: throat pain, oral sores or ear or mastoid pain Card: Denies: chest pain, edema, pre-syncope or dyspnea on exertion Resp: Reports: dyspnea and pain on inspiration; Denies: productive cough, change in phlegm color or hemoptysis GI: Reports: nausea and vomiting; Denies: abdominal pain, diarrhea, constipation, hematochezia or melena : Denies: flank pain, difficulty urinating, urinary frequency or hematuria Musc: Denies: back pain, joint swelling or joint redness Skin/Breast: Denies: rash, sores or new lesions Neuro: Denies: headache(s), numbness in extremities, weakness in extremities, dizziness, confusion or seizure-like activity Endo: Denies: polyuria or polydipsia Simeon/Lymph: Denies: easy bleeding or purpura All/Imm: Denies: urticaria, throat swelling or tongue swelling Meds/Allergies Home Medications and Allergies Home Medications Medication Instructions Recorded Confirmed Last Taken Type fluticasone 500 mcg-salmeterol 50 1 inh INHALATION BID 05/08/19 07/21/20 07/21/20 08:00 History mcg/dose blistr powdr for inhalation glimepiride 4 mg tablet 4 mg PO BID tab 05/08/19 07/21/20 07/21/20 17:30 History ipratropium 20 mcg-albuterol 100 1 puff INHALATION Q6H 05/08/19 07/21/20 07/21/20 17:30 History mcg/actuation mist for inhalation losartan 100 1 tab PO DAILY 05/08/19 07/21/20 07/21/20 17:30 History mg-hydrochlorothiazide 25 mg tablet metformin 500 mg tablet 500 mg PO BID 05/08/19 07/21/20 07/21/20 17:30 History omeprazole 20 mg capsule,delayed 20 mg PO DAILY 05/08/19 07/21/20 07/21/20 17:30 History release simvastatin 40 mg tablet 40 mg PO DAILY 05/08/19 07/21/20 07/21/20 17:30 History spironolactone 25 mg tablet 25 mg PO DAILY 05/08/19 07/21/20 07/21/20 08:00 History tamsulosin 0.4 mg capsule 0.4 mg PO DAILY 05/08/19 07/21/20 07/21/20 08:00 History metoprolol tartrate 25 mg tablet 25 mg PO BID #180 tab 05/28/20 07/21/20 07/21/20 17:30 Rx furosemide 20 mg tablet 20 mg PO DAILY #30 tab 06/14/20 07/21/20 07/21/20 08:00 Rx potassium chloride 8 mEq 8 meq PO DAILY #30 tab 06/14/20 07/21/20 07/21/20 17:30 Rx tablet,extended release isosorbide mononitrate 30 mg 30 mg PO BID #60 tab 06/21/20 07/21/20 07/21/20 17:30 Rx tablet,extended release 24 hr magnesium oxide 400 mg PO DAILY #90 tab 06/22/20 07/21/20 07/21/20 17:30 Rx nitroglycerin 0.4 mg sublingual 0.4 mg SUBLINGUAL Q5M PRN #25 tab 06/25/20 07/21/20 Unknown Rx tablet clopidogrel 75 mg tablet 300 mg PO .COMPLEX #34 tab 07/09/20 07/21/20 07/21/20 08:00 Rx diphenhydramine HCl 25 mg capsule 25 mg PO ONCE #3 cap 07/09/20 07/21/20 07/22/20 05:30 Rx prednisone 50 mg tablet 50 mg PO .COMPLEX #5 tab 07/09/20 07/21/20 07/22/20 05:30 Rx Allergies Allergy/AdvReac Type Severity Reaction Status Date / Time morphine Allergy Unknown ADR/ALGY-Pa Verified 04/21/20 09:38 lpitations iodine Allergy Unknown Verified 07/08/20 11:27 Current Medications Current Medications Generic Name Dose Route Start Last Admin Trade Name Freq PRN Reason Stop Dose Admin Acetaminophen 650 mg 07/22/20 10:04 07/22/20 21:58 Acetaminophen 325 Mg Tablet PO 650 mg Q6H PRN Administration MILD PAIN Albuterol/Ipratropium 1 puff 07/23/20 20:20 07/23/20 20:23 Ipratropium-Albuterol 4 Gm Mdi INHALATION Not Given QID.RESPIRATORY LIZZETTE Alprazolam 0.25 mg 07/22/20 10:04 07/22/20 18:05 Alprazolam 0.25 Mg Tablet PO 0.25 mg TID PRN Administration ANXIETY Fentanyl 25 mcg 07/23/20 04:18 07/23/20 16:13 Fentanyl 50 Mcg/Ml Inj 2ml IVP 25 mcg Q2H PRN Administration SEVERE PAIN Furosemide 20 mg 07/23/20 09:00 07/23/20 08:52 Furosemide 20 Mg Tablet PO 20 mg DAILY LIZZETTE Administration Nitroglycerin/Dextrose 50 mg in 250 mls @ 0 mls/hr 07/22/20 12:15 07/23/20 19:27 Nitroglycerin Drip IV 5 mcg/min .Q0M LIZZETTE 1.5 mls/hr Titration Protocol Per Protocol Insulin Aspart 0 unit 07/22/20 18:00 07/23/20 18:20 Insulin Aspart 100 Unit/1 Ml SUBCUT 4 unit WM&BEDTIME LIZZETTE Administration Protocol Isosorbide Mononitrate 30 mg 07/22/20 18:00 07/23/20 18:19 Isosorbide Mononitrate Er 30 Mg Tablet PO 30 mg BID LIZZETTE Administration Metformin HCl 500 mg 07/22/20 18:00 07/22/20 19:12 Metformin 500 Mg Tablet PO Not Given BID [facility] Metoprolol Tartrate 25 mg 07/22/20 18:00 07/23/20 18:20 Metoprolol Tartrate 25 Mg Tablet PO 25 mg BID LIZZETTE Administration Nitroglycerin 0.4 mg 07/22/20 10:04 07/22/20 11:08 Nitroglycerin 0.4 Mg Sublingual Tablet SUBLINGUAL 0.4 mg Q5M PRN Administration chest pain Ondansetron HCl 4 mg 07/23/20 05:49 07/23/20 05:59 Ondansetron 2 Mg/Ml Sdv 2 Ml IVP 4 mg Q4H PRN Administration NAUSEA AND VOMITING Ranolazine 500 mg 07/23/20 09:00 07/23/20 18:19 Ranolazine (12hr) 500 Mg Tablet PO 500 mg BID LIZZETTE Administration Fluticasone/Salmeterol 1 puff 07/22/20 20:00 07/23/20 20:22 Fluticasone-Salmeterol 500-50 Diskus INHALATION Not Given BID.RESPIRATORY LIZZETTE Tamsulosin HCl 0.4 mg 07/23/20 09:00 07/23/20 08:51 Tamsulosin 0.4 Mg Capsule PO 0.4 mg DAILY LIZZETTE Administration PFSH Acute PFSH: Medical History ASHD (arteriosclerotic heart disease) Carotid stenosis, bilateral Diabetes Dizziness HTN (hypertension) Surgical History S/P CABG (coronary artery bypass graft) Two-vessel coronary bypass surgery Social History Smoking and tobacco status: former smoker Household members: family Marital status: service: No Current occupational status: retired Vitals/I&O/Wt Last Vital Signs Temp 98.2 F 07/22/20 06:34 Pulse 111 H 07/23/20 20:21 Resp 16 07/23/20 20:21 BP 118/83 07/22/20 20:02 Pulse Ox 95 07/23/20 20:21 07/23/20 07/23/20 07/23/20 06:59 14:59 22:59 Intake Total 300 / 1436.142 150 / 150 379.4 / 529.4 Output Total 150 / 2075 1050 / 1050 Balance 150 / -638.858 -900 / -900 379.4 / -520.6 Weight last 48 hrs Weight 93.44 kg Physical Exam Const: COMMON NORMALS: no acute distress and patient oriented x3 GENERAL APPEARANCE: frail appearing HENMT: COMMON NORMALS: oropharynx normal OTHER: Deviated from deviated septum Neck/C-Spine: COMMON NORMALS: no JVD Resp: COMMON NORMALS: normal respiratory effort and clear to auscultation bilaterally AUSCULTATION: clear to auscultation bilaterally and diminished lung sounds Cardio: COMMON NORMALS: no JVD, regular rhythm, S1 normal heart sound present, S2 normal heart sound present and No murmurs present (Cardio) RATE: tachycardic RHYTHM: regular rhythm HEART SOUNDS: S1 normal heart sound present and S2 normal heart sound present GI: COMMON NORMALS: Normal to inspection, nondistended, normoactive bowel sounds present, Soft to palpation and non-tender PALPATION: Yes Soft to palpation Extremity: COMMON NORMALS: no joint enlargement and no pedal edema Neuro: COMMON NORMALS: patient oriented x3 and moves all extremities Skin: COMMON NORMALS: no rashes or lesions noted GENERAL SKIN EXAM: no rashes or lesions noted Data Micro: Micro: Microbiology 07/23/20 18:17 Blood Culture - Pr eliminary Blood SPECIMEN [facility] 07/23/20 18:15 Blood Culture - Pr eliminary Blood SPECIMEN [facility] A&P Assessment and plan (1) Hypoxia: Dyspnea yesterday, thought to be secondary to pulmonary edema, received BiPAP support, Lasix. Overall his breathing has improved, however, today still dyspneic, also with pleuritic pain, reports cough, reports starting to produce sputum since last night, although this is somewhat better today. With leukocytosis, tachycardia. Discussed with him and his daughter, possible sepsis. Requested collection of blood cultures, check lactic acid. Starting on Zosyn given nausea, vomiting, concern for aspiration pneumonitis, x-ray infiltrates, predominantly in the right lower lobe, somewhat patchy peripheral opacities on CT, not typical of pulmonary edema. Will collect sputum culture if he is able to provide. Continue oxygen support, wean down as tolerating. Continue his usual inhalers. As per discussion with the radiologist, consideration may be also given to COVID-19 with this appearance. Discussed with him and his daughter, negative COVID-19 test was seen on 07/16, however, with cough, nausea, vomiting, groundglass infiltrates, will go ahead and assess additionally by COVID-19 PCR, assess rapid flu. Discussed additional possibilities of atypical appearing pulmonary edema. Will assess TTE. Discussed possibility and consideration of PE. D-dimer would likely not be helpful in her situation. Unfortunately we are limited also with regards to imaging, with the patchy infiltration, chronic lung disease, VQ scan may not be helpful. Currently also at risk of contrast-induced nephropathy, so would hold off on CT angiogram. Discussed with his daughter, per discussion with cardiology we are for now empirically going to start anticoagulation with heparin drip due to consideration, although probably less likely, but of this serious condition. Status: Acute (2) ASHD (arteriosclerotic heart disease): Status post coronary angiography, stent placement to mid diagonal branch. Stents patent on reevaluation. No chest pain currently. Continue post PCI care. Cardiac medications. Status: Acute (3) KRISTA (acute kidney injury): Creatinine 1.5. Assess urine studies. Possibility of prerenal failure with diuresis for pulmonary edema. Will additionally assess NICOM as discussed with RN, in case responsive may give albumin bolus. Possibly prerenal failure in case of worsening CHF. Will assess TTE. Possibility of ALYSSA. We will additionally assess by renal ultrasound to assess for any obstructive uropathy. Producing urine. Follow urine output, renal function. Avoid nephrotoxins. Status: Acute (4) Nausea & vomiting: Resolved. CT of the head unremarkable. Status: Acute (5) Elevated brain natriuretic peptide (BNP) level: Assess TTE. Difficult to interpret in the setting of KRISTA. Status: Acute (6) Metabolic acidosis: Check lactic acid. Ketones. Status: Acute (7) Diabetes: Continue SSI. Metformin on hold. Status: Acute (8) HTN (hypertension): Blood pressures are at goal. Status: Acute Qualifiers: Hypertension type: essential hypertension Qualified Code(s): I10 - Essential (primary) hypertension Consult Attestations Medical Necessity Statement: Continue admission for assessment management of hypoxia, pneumonia, possible sepsis, metabolic acidosis. Coding Level of Care Code Acute Trigonometry [facility] Diagnoses Hypoxia R09.02 ASHD (arteriosclerotic heart disease) I25.10 KRISTA (acute kidney injury) N17.9 Nausea & vomiting R11.2 Elevated brain natriuretic peptide (BNP) level R79.89 Metabolic acidosis E87.2 Diabetes E11.9 HTN (hypertension) I10 Hypertension type: essential hypertension
[2020-07-23] MEDS: heparin drip 25,000 UNIT/500 ML PREMIX 27 UNIT IV (21:10)
[2020-07-23 21:26] LABS: Ketone (Acetest) Serum Negative (Negative)
[2020-07-23 21:35] LABS: Glucose Point of Care 218 mg/dL (70-110)
[2020-07-23] MEDS: heparin 5,000 unit/mL INJ 1 mL IV (21:39)
[2020-07-23 22:09] LABS: Influenza A by IFA Negative (Negative); Influenza B by IFA Negative (Negative)
[2020-07-23 22:09] LABS: Lactic Sepsis W/Reflex 4.7 mmol/L (0.5-2.2)
[2020-07-23 23:29] LABS: Reflex Lactate Order REFLEX LACTIC ORDERD
[2020-07-24] VITALS (15 sets, daily range): BP systolic 72–89; BP diastolic 49–64; PULSE 51–132; RESP 0–32; O2SAT 93–98
--- NOTE | 2020-07-24 | USR_ITS ---
PROCEDURE INFORMATION: Exam: US Retroperitoneal; Complete; Kidneys and Bladder Exam date and time: 07/24/2020 7:08 AM Age: 74 years old Clinical indication: Abnormal findings; Abnormal lab test; Abnormal kidney function lab tests; Additional info: Matt - assess for any obstructive uropathy TECHNIQUE: Imaging protocol: Real-time ultrasound of the retroperitoneum with image documentation. Complete exam focused on the kidneys and bladder. COMPARISON: CT abdomen pelvis w con* [id number] 10/02/2015 10:29 AM FINDINGS: Right kidney: Normal. There is a small cyst in the right lower kidney measuring 2.0 by 2.2 x 2.1 cm. No stones. No hydronephrosis. Left kidney: Normal. No stones. No hydronephrosis. Urinary bladder: Unremarkable. Dictated By: Arya Parrish Signed By: Signed Date/Time: DD/ 0916 MTDD US/US renal BI* [id number] IMPRESSION: Unremarkable kidneys and bladder.
[2020-07-24] MEDS: sodium chloride 0.9% 250 ML IV (01:47)
--- NOTE | 2020-07-24 01:48 | PC.NURSE ---
ASSUMING CARE 1900 Patient is resting in bed on 3L nasal cannula. Alert and oriented x 4. Nitroglycerin drip running at 10 mcg/min. Dr. Bass at bedside shortly after discussing plan of care with patient. New orders for additional coronavirus test due to suspicious chest xray, urinalysis, antibiotics started, physician requested cheetah hemodynamic assessment be done and notify him with readings.
--- NOTE | 2020-07-24 01:54 | PC.NURSE ---
HEMODYNAMIC ASSESSMENT Patient had 43.7% increase in SVI. Dr. Bass notified and gave orders for albumin 25 gram 25% and to notify credit reporting clerk hospitalist with next hemodynamic assessment results post albumin to see if patient could tolerate small bolus or additional albumin. Patient has since became hypotensive shortly after albumin administration completed with manual blood pressure and monitor matching at 78/59. Dr. Richardson notified of this and gave order for one time 250 mL normal saline bolus. Hemodynamic assessment to be repeated post bolus.
[2020-07-24] MEDS: HYDROcodone-acetaminophen 5-325 mg Tablet 1 TAB PO (03:24)
[2020-07-24 03:37] LABS: Basophils % 0.1 %; Hematocrit 34.3 % (42.0-52.0); Hemoglobin 11.1 g/dL (11.7-16.6); Lymphocytes # 0.8 10^3/uL (0.8-4.8); Lymphocytes % 3.1 %; Mean Corpuscular HGB Conc 32.4 g/dL (30.0-36.0); Mean Corpuscular Hemoglobin 35.5 pg (28.0-34.0); Mean Corpuscular Volume 109.6 fL (80-94); Mean Platelet Volume 12.2 fL (7.4-10.4); Monocytes # 8.3 10^3/uL (0.2-0.9); Monocytes % 33.1 %; Neutrophils # 15.76 10^3/uL (1.8-7.7); Neutrophils % 62.6 %; Nucleated Red Blood Cells % 0 %; Platelet Count 156 10^3/cmm (130-400); Red Blood Count 3.13 10^6/uL (4.1-5.3); Red Cell Distribution Width 13.2 % (12.1-15.1); White Blood Count 25.2 10^3/uL (4.0-10.0)
[2020-07-24 03:49] LABS: Partial Thromboplastin Time 59.3 SECONDS (23.9-36.7)
[2020-07-24 03:58] LABS: Alanine Aminotransferase 68 U/L (0-41); Albumin Level 3.9 g/dL (3.5-5.2); Alkaline Phosphatase 83 IU/L (40-130); Aspartate Amino Transferase 320 U/L (0-40); Blood Urea Nitrogen 46 mg/dL (8-23); Calcium 8.1 mg/dL (8.5-10.5); Carbon Dioxide 14 mmol/L (22-29); Chloride 102 mmol/L (98-107); Globulin 2.7 g/dL (1.3-4.6); Glucose 179 mg/dL (65-115); Lactic Acid level (Lactate) 3.4 mmol/L (0.5-2.2); Osmolality Calculated 288 mOsm/kg (285-295); Sodium 131 mmol/L (136-145); Total Bilirubin 1.6 mg/dL (0.15-1.2); Total Protein 6.6 g/dL (6.6-8.7)
[2020-07-24 04:06] LABS: Anion Gap 20.5 (5-19); Potassium 5.5 mmol/L (3.5-5.1)
[2020-07-24 05:35] LABS: Glucose Point of Care 258 mg/dL (70-110)
--- NOTE | 2020-07-24 05:47 | ECG_ITS ---
[facility] Test Date: 2020-07-24 Pat Name: Carlos Tom Department: Room: ICU12 Gender: Male [employer]: : 1945 Requested By: Martha Richardson Order Number: [id number] Reading MD: MARTHA SIMS Measurements Intervals [place] Rate: 129 P: 82 MT: 190 QRS: 40 QRSD: 143 T: 0 QT: 338 QTc: 495 Interpretive Statements SINUS TACHYCARDIA LEFT BUNDLE BRANCH BLOCK [120+ ms QRS DURATION, 80+ ms Q/S IN V1/V2, 85+ ms R IN I/aVL/V5/V6] nonspecific mild ST elevation not due to risk Compared to ECG 07/23/2020 08:30:59 Left bundle-branch block now present ST (T wave) deviation now present Sinus rhythm no longer present Ventricular premature complex(es) no longer present Right-axis deviation no longer present Myocardial infarct finding still present Electronically Signed On 07-25-2020 22:30:01 CDT by MARTHA SIMS [email or web address]
--- NOTE | 2020-07-24 05:48 | USCV_ITS ---
Carlos Tom Age: 74 Gender: M : 1945 Exam Date: 07/24/2020 07:32 Ordering Phys: Martha Figueroa MD ([email or web address]) Technologist: Delphine Fowler Exam Location: [facility] [place] Indication: Rule out pericardial effusion. Change in patient condition. BP: 77 / 64 HR: 110 Rhythm: Sinus Tachycardia Technical Quality: Suboptimal MEASUREMENTS (Male / Female) Normal Values 2D ECHO LV Diastolic Diameter PLAX 3.9 cm 4.2 - 5.9 / 3.9 - 5.3 cm LV Systolic Diameter PLAX 3.6 cm LV Chamber Size 3.5 cm IVS Diastolic Thickness 1.5 cm 0.6 - 1.0 / 0.6 - 0.9 cm IVS Systolic Thickness 1.5 cm LVPW Diastolic Thickness 1.0 cm 0.6 - 1.0 / 0.6 - 0.9 cm LVPW Systolic Thickness 1.2 cm RV Chamber Size 3.1 cm LV Ejection Fraction 2D Teich 15.8 % LV Ejection Fraction MOD 2C 25.9 % LV Ejection Fraction 2C AL 26.2 % LA Width 3.5 cm LA Height 4.7 cm RA Width 2.4 cm RA Height 4.2 cm M-MODE LV Diastolic Diameter MM 6.2 cm 4.2 - 5.9 / 3.9 - 5.3 cm LV Systolic Diameter MM 5.2 cm LV Ejection Fraction MM Teich 34.3 % IVS Diastolic Thickness MM 1.0 cm 0.6 - 1.0 / 0.6 - 0.9 cm IVS Systolic Thickness MM 1.2 cm LVPW Diastolic Thickness MM 1.2 cm 0.6 - 1.0 / 0.6 - 0.9 cm LVPW Systolic Thickness MM 1.7 cm RV Diastolic Diameter MM 1.1 cm FINDINGS Left Ventricle Normal left ventricular cavity size. Severely decreased left ventricular systolic function. Left ventricular ejection fraction is estimated at 35 %. There appeared to be septal anterior wall hypokinesis, apical akinesis and lateral wall akinesis. Right Ventricle Normal right ventricular size. Normal right ventricular systolic function. Right Atrium Left Atrium Moderately increased left atrial size. Mitral Valve Severe mitral annular calcification. Severely thickened mitral valve. Aortic Valve Aortic valve not well visualized. Tricuspid Valve Pulmonic Valve Pericardium No pericardial effusion Aorta CONCLUSIONS This is a limited echocardiogram to assess pericardial effusion and LV function without Doppler hemodynamics assessment. 1-Normal left ventricular cavity size. Severely decreased left ventricular systolic function. Left ventricular ejection fraction is estimated at 35 %. There appeared to be septal anterior wall hypokinesis, apical akinesis and lateral wall akinesis. 2-Moderately increased left atrial size. 3-Severe mitral annular calcification. Severely thickened mitral valve. 4-Aortic valve not well visualized. 5-There is no pericardial effusion. 6-As compared to the prior echocardiogram dated 08 October 2018, this is a limited study suggestive of severely depressed LV function which has been deteriorated from normal 74% to 35% now. There is a new wall motion abnormality of lateral apical and hypokinesis of anterior and septal wall. Please request full complete study to assess valvular function Martha Figueroa MD (Electronically Signed) Final Date: 24 Jul 2020 15:47 S
--- NOTE | 2020-07-24 06:00 | XRR_ITS ---
PROCEDURE INFORMATION: Exam: XR Chest Exam date and time: 07/24/2020 5:32 AM Age: 74 years old Clinical indication: Shortness of breath; Additional info: Hypoxia TECHNIQUE: Imaging protocol: XR of the chest. Views: 1 view. COMPARISON: CT chest con [id number] 07/23/2020 6:07 PM FINDINGS: Lungs: There is subtle hazy bilateral airspace opacities, consistent with multifocal pneumonia. Trace left pleural effusion noted. No pneumothorax. Pleural spaces: See Lungs finding. Heart/Mediastinum: Stable cardiomediastinal silhouette. Bones/joints: Median sternotomy changes seen. Degenerative changes of the spine seen. Vertebral augmentation cement is again seen in L1. XR/XR chest 1V portable [id number] IMPRESSION: Multifocal pneumonia, unchanged.
--- NOTE | 2020-07-24 06:36 | P.PN_ITS ---
Subjective Subjective: Interval history: Patient this morning had episode of hypotension and diaphoresis along with tachycardia. He was started on Levophed. Creatinine has jumped up to 2.4 consistent with contrast-induced nephropathy. CT scan is consistent with interstitial infiltrates, mild pulmonary edema suggestive of inflammatory infectious etiology. He is on Covid rule out as well. Currently he is lying in the bed comfortable systolic blood pressure around 90s. He is on IV antibiotics. Potassium is jumped up to 5.5 Vitals/I&O/Wt Last Vital Signs Temp 98.2 F 07/22/20 06:34 Pulse 120 H 07/24/20 02:00 Resp 13 07/24/20 02:00 BP 77/64 07/24/20 02:00 Pulse Ox 94 07/24/20 02:00 07/23/20 07/23/20 07/24/20 14:59 22:59 06:59 Intake Total 150 / 150 439.4 / 589.4 408.63 / 998.03 Output Total 1050 / 1050 Balance -900 / -900 439.4 / -460.6 408.63 / -51.97 Physical Exam Narrative: EXAM NARRATIVE: GENERAL: Patient is alert, awake and oriented x3. Moderately distressed NECK: No jugular vein distension. HEENT: No cyanosis. No icterus. No pallor. HEART: Regular S1 and S2. No murmur, rub or gallop. LUNGS: Clear to auscultate bilaterally. ABDOMEN: Soft, nontender and nondistended. Positive bowel sounds. No guarding, rebound or tenderness. CENTRAL NERVOUS SYSTEM: Grossly nonfocal. EXTREMITIES: Lower extremities without edema bilaterally. Data : 07/24/20 03:00 07/24/20 03:00 Micro: Microbiology 07/23/20 18:17 Blood Culture - Preliminary Blood SPECIMEN COLLECTED 07/23/20 18:15 Blood Culture - Preliminary Blood SPECIMEN COLLECTED A&P Assessment and plan (1) ASHD (arteriosclerotic heart disease): For worsening of unstable angina patient is status post drug-eluting stent to proximal to mid diagonal branch for significant 90% eccentric highly calcified stenosis. Post PCI patient was taken back to the [facility] due to recurrent chest pain noted to have patent stents. Patient has been loaded with 300 mg of Plavix. Later patient did fine however towards the evening patient went into respiratory distress. He was noted to be in pulmonary edema BiPAP was started IV Lasix was given he had short runs of ventricular tachycardia he was given metoprolol. Currently he is stabilizing blood pressure is stable he denies any chest pain and now on BiPAP he is feeling better hopefully with good diuresis left ventricular end-diastolic pressure will also reduce and he will start feeling better. We will continue to monitor him at this point we may will move him to ICU. 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 His breathing is better. There is also question regarding prostate enlargement and retention of the urine. We will ask for bladder scan. I will get x-ray chest CBC BMP and BNP. He has been given another round of IV Lasix. Twelve-lead EKG will be obtained. Currently he appeared to be stable. Patient has extensive coronary artery disease with highly calcified vessel he has CABG in 2019. During this angiogram he was noted to have chronically occluded SVG to RCA RCA is highly calcified proximally occluded vessel not amenable to intervention. Diagonal was very torturous highly calcified vessel not amenable to atherectomy however we did extensive balloon angioplasty followed by 2 overlapping stent placement postdilated at high NEYMAR with noncompliant balloon for proper approximation. We will continue aspirin Plavix I will add ranolazine patient has extensive multiple tandem lesion in the LAD. Dr. Mejia's note confirmed the high calcification of the vessels which in his case unfortunately is a long-term problem. He also has small vessel disease and element of anxiety. At this point I will add ranolazine. Continue to optimize medicine including beta-rosy isosorbide mononitrate. Further plan will be advised as per progress of the patient. I have detailed discussion with the patient in yesterday with his family. Their full understanding of the disease. On today's visit dated 07/24/2020 As defined above this morning patient had episode of hypotension. Started on Levophed currently appears to be stable laying in the bed he is in sinus tach. Creatinine has worsened suggestive of contrast-induced nephropathy. X-rays are consistent with more of pneumonia he is on IV antibiotics for that. Covid rule helped has been sent out. Twelve-lead EKG was not suggestive of acute coronary syndrome. He is status post PCI to diagonal branch. His saphenous venous graft to RCA is closed. RCA is chronically occluded. LAD is highly calcified severely diseased vessel with tandem stenosis. YOUNG to LAD is patent but we are not sure how much it is supplying the LAD since due to extensive disease in the tetlin vessel. Diagonal which was calcified and stenotic was treated with 2 overlapping drug-eluting stents for recurrent unstable angina. Today I will also request nephrology to help us in his case for ALYSSA. We appreciate medicine input. Echocardiogram is requested to assess ejection fraction and any effusion Status: Acute (2) Pneumonia: As per medicine. Continue IV antibiotics. Perhaps sepsis is also an element. Patient is on Levophed if he become more tachycardic I may will switch him to vasopressin. Covid test is pending Status: Acute Qualifiers: Pneumonia type: due to unspecified organism Laterality: unspecified laterality Lung location: unspecified part of lung Qualified Code(s): J18.9 - Pneumonia, unspecified organism (3) Contrast dye induced nephropathy: Most likely contrast-induced nephropathy as patient was taken twice to the [facility] however he has patent stent which was placed earlier. We will request consult for nephrology . 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
--- NOTE | 2020-07-24 07:05 | PC.NURSE ---
CHEST PAIN Patients heart rate jumped to 140's, diaphoretic, pale and short of breath. EKG done and sent to hospitalist and Dr. Figueroa. Acute NE ruled out by Dr. Figueroa. Levophed orders, drip started. Limited echo ordered to rule out pericardial effusion.
[2020-07-24] MEDS: piperacillin-tazobactam 3.375 GM in sodium chloride 0.9% (plus) 50 ML IV (07:16)
[2020-07-24] MEDS: ondansetron 2 mg/ML SDV 2 mL 4 MG IVP ×3 (07:45→19:48)
--- NOTE | 2020-07-24 09:18 | PM.PN ---
Subjective Subjective: Interval history: He states he is doing overall all right. Feels slightly better this morning. Still having cough. Bringing up some phlegm. No hemoptysis. We will try to give us a sample provided a container. Denies currently any chest pain or pressure. Reports no appetite, some nausea, no vomiting. No abdominal pain. Vitals/I&O/Wt Last Vital Signs Temp 98.2 F 07/22/20 06:34 Pulse 100 07/24/20 08:27 Resp 20 H 07/24/20 08:27 BP 77/64 07/24/20 02:00 Pulse Ox 98 07/24/20 08:27 07/23/20 07/24/20 07/24/20 22:59 06:59 14:59 Intake Total 439.4 / 589.4 768.63 / 1358.03 Balance 439.4 / -460.6 768.63 / 308.03 Physical Exam Const: COMMON NORMALS: no acute distress and patient oriented x3 GENERAL APPEARANCE: frail appearing HENMT: COMMON NORMALS: oropharynx normal OTHER: Deviated from deviated septum Neck/C-Spine: COMMON NORMALS: no JVD Resp: COMMON NORMALS: normal respiratory effort and clear to auscultation bilaterally AUSCULTATION: clear to auscultation bilaterally and diminished lung sounds Cardio: COMMON NORMALS: no JVD, regular rhythm, S1 normal heart sound present, S2 normal heart sound present and No murmurs present (Cardio) RATE: tachycardic RHYTHM: regular rhythm HEART SOUNDS: S1 normal heart sound present and S2 normal heart sound present GI: COMMON NORMALS: Normal to inspection, nondistended, normoactive bowel sounds present, Soft to palpation and non-tender PALPATION: Yes Soft to palpation Extremity: COMMON NORMALS: no joint enlargement and no pedal edema Neuro: COMMON NORMALS: patient oriented x3 and moves all extremities Skin: COMMON NORMALS: no rashes or lesions noted GENERAL SKIN EXAM: no rashes or lesions noted Data : 07/24/20 03:00 07/24/20 03:00 Micro: Microbiology 07/23/20 18:17 Blood Culture - Preliminary Blood SPECIMEN COLLECTED 07/23/20 18:15 Blood Culture - Preliminary Blood SPECIMEN COLLECTED A&P Assessment and plan (1) Hypoxia: Oxygenation with some worsening, requiring 3 L nasal cannula, currently is on 6, but saturating 98%. Reports breathing is somewhat better. Producing phlegm with cough. Leukocytosis worsened up to 25.2. Mostly neutrophilic. Elevated monocytes. Follow-up sputum culture. Continue Zosyn at this time. Possible septic shock. Support MAP. Chest x-ray overall appears better, with fewer interstitial/hazy opacities, with persistent right lower lobe infiltrate. Pending official read. Follow-up COVID-19 PCR. Rapid flu negative. Follow-up TTE. For now continues empirically on anticoagulation until can obtain additional imaging to exclude PE. No DVT noted on lower extremity duplex. 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 Requested assess NICOM again. For now hold on Lasix until result available. Place Quan for accurate BERNA. Discussed with him and his daughter. Status: Acute (2) Hypotension: Overnight blood pressure is low. Weaned off nitro drip. This morning we will hold Flomax. Hold Imdur. Additional assessment by NICOM, for now hold Lasix. Possible cardiogenic shock. Possible septic shock. Levophed support per protocol maintain MAP. Currently 4 MCG. Appears to be additional fluid responsive at this time. Will additionally give albumin bolus. Cautious fluid resuscitation given low urine output, KRISTA. Discussed may need central line. Place Quan catheter. Start famotidine. Status: Acute (3) ASHD (arteriosclerotic heart disease): Status post coronary angiography, stent placement to mid diagonal branch. Stents patent on reevaluation. SVG to RCA is closed. RCA chronically occluded. LAD highly calcified severely diseased and due to this unclear how much perfusion he is actually getting from YOUNG. No chest pain currently. Continue aspirin, Plavix. Check CK. Resume statin if not elevated. Metoprolol for now on hold due to hypotension. Status: Acute (4) KRISTA (acute kidney injury): KRISTA. Hyperkalemia. Creatinine worsening today. Low urine output overnight, only 350. Per night, appears to be fluid responsive. Will give additional albumin bolus. Renal ultrasound obtained, no obstruction. Pending UA, urine studies. Nephrology assessment pending. Appears likely multifactorial failure. Concern for possible cardiogenic shock. Maintain blood pressures. Possible ALYSSA. Avoid nephrotoxins. Monitor urine output. Place Quan. Recheck renal function this afternoon and potassium level. Change to low potassium diet. Status: Acute (5) Nausea & vomiting: Start famotidine. Zofran as needed. CT of the head unremarkable. Status: Acute (6) Elevated brain natriuretic peptide (BNP) level: Assess TTE. Difficult to interpret in the setting of KRISTA. Status: Acute (7) Metabolic acidosis: Lactic acidosis, with improvement. Hypoperfusion suspected secondary to possible cardiogenic shock, possible septic shock. Renal failure. Ketones negative. Status: Acute (8) Diabetes: Continue SSI. Metformin on hold. Status: Acute (9) HTN (hypertension): Hold BP meds. Status: Acute Qualifiers: Hypertension type: essential hypertension Qualified Code(s): I10 - Essential (primary) hypertension (10) Transaminitis: Possibly congestive hepatopathy, although I do not appreciate significant JVD, no peripheral edema. Check CK for possible rhabdomyolysis. Statin held for now. Follow-up TTE. Status: Acute (11) Hyperbilirubinemia: Check bilirubin fractions. Hemoglobin platelets appear to be rather at baseline. Less suspicion for hemolysis. Check LDH, haptoglobin. No abdominal pain. No right upper quadrant pain. Status: Acute Attestations Medical Necessity Statement*: Continue admission for assessment of management of hypoxia, pneumonia, possible cardiogenic shock, possible septic shock, acute kidney injury and gentleman with severe underlying coronary disease. 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
[2020-07-24] MEDS: ranolazine (12HR) 500 mg Tablet PO (10:02)
[2020-07-24] MEDS: famotidine 20 mg/2 mL INJ IVP (10:05)
[2020-07-24] MEDS: clopidogrel 75 mg Tablet PO (10:23)
[2020-07-24] MEDS: aspirin 81 mg EC Tablet PO (10:23)
[2020-07-24 11:11] LABS: Glucose Point of Care 262 mg/dL (70-110)
[2020-07-24 11:11] LABS: Glucose Point of Care 220 mg/dL (70-110)
--- NOTE | 2020-07-24 11:17 | P.CONIM_ITS ---
Providers/Reason For Consult Consulting Physican/Specialty*: Nephrology Reason for Consult*: Eval for KRISTA Attending Physician: Martha Figueroa MD Primary Care Provider: Michael Garcia MD History of Present Illness History of Present Illness Thank you for consultation, today I had the pleasure of reviewing this 74-year-old gentleman. He has been with us for a few days following a stress test which demonstrated a small area of reversibility in the inferior and lateral anterior lateral aspects of the left ventricle. He subsequently underwent left heart cath, and was noted to have chronically occluded RCA and mild distal circumflex had 90% stenosis. He had a drug-eluting stent placed to proximal to mid diagonal branch for the significant 90% stenosis. Post procedure he was noted to have pulmonary edema, short runs of ventricular tachycardia. He was placed on BiPAP and he was given combination of IV Lasix and metoprolol. For the first few days his blood pressure was robust, however the, he has become quite profoundly hypotensive and has now been started on Levophed. His white count is significantly higher and he is now receiving combination of antibiotics and cultures now sent. His urine output overnight has only been 350 mL, is also noted that his serum c reatinine is now increasing and is 2.4 today, his bicarb is down to 14, anion gap at 20.5, sodium down to 131 and potassium of 5.5. His lactic acid was noted to be 4.7. He feels unwell, he is weak. He is maintaining his oxygen levels with 6 L nasal cannula oxygen saturation of 95%. Sestamibi scan did demonstrate ejection fraction of 71%, currently no available echocardiogram. No known prior history of acute or chronic kidney disease. Admission serum creatinine was normal. No difficulty passing his urine and a Quan catheter has now just been placed. Prior to hospitalization no history of exposure to anti- inflammatory medications or potentially nephrotoxic substances Urinalysis demonstrated specific gravity 1.02, occult blood 3+, RBCs 8200, urinary sodium 11 and urinary creatinine of 219. Review of Systems General: Reports: ROS unobtainable due to medical condition Meds/Allergies Home Medications and Allergies Home Medications Medication Instructions Recorded Confirmed Last Taken Type fluticasone 500 mcg-salmeterol 50 1 inh INHALATION BID 05/08/19 07/21/20 07/21/20 08:00 History mcg/dose blistr powdr for inhalation glimepiride 4 mg tablet 4 mg PO BID tab 05/08/19 07/21/20 07/21/20 17:30 History ipratropium 20 mcg-albuterol 100 1 puff INHALATION Q6H 05/08/19 07/21/20 07/21/20 17:30 History mcg/actuation mist for inhalation losartan 100 1 tab PO DAILY 05/08/19 07/21/20 07/21/20 17:30 History mg-hydrochlorothiazide 25 mg tablet metformin 500 mg tablet 500 mg PO BID 05/08/19 07/21/20 07/21/20 17:30 History omeprazole 20 mg capsule,delayed 20 mg PO DAILY 05/08/19 07/21/20 07/21/20 17:30 History release simvastatin 40 mg tablet 40 mg PO DAILY 05/08/19 07/21/20 07/21/20 17:30 History spironolactone 25 mg tablet 25 mg PO DAILY 05/08/19 07/21/20 07/21/20 08:00 History tamsulosin 0.4 mg capsule 0.4 mg PO DAILY 05/08/19 07/21/20 07/21/20 08:00 History metoprolol tartrate 25 mg tablet 25 mg PO BID #180 tab 05/28/20 07/21/20 07/21/20 17:30 Rx furosemide 20 mg tablet 20 mg PO DAILY #30 tab 06/14/20 07/21/20 07/21/20 08:00 Rx potassium chloride 8 mEq 8 meq PO DAILY #30 tab 06/14/20 07/21/20 07/21/20 17:30 Rx tablet,extended release isosorbide mononitrate 30 mg 30 mg PO BID #60 tab 06/21/20 07/21/20 07/21/20 17:30 Rx tablet,extended release 24 hr magnesium oxide 400 mg PO DAILY #90 tab 06/22/20 07/21/20 07/21/20 17:30 Rx nitroglycerin 0.4 mg sublingual 0.4 mg SUBLINGUAL Q5M PRN #25 tab 06/25/20 07/21/20 Unknown Rx tablet clopidogrel 75 mg tablet 300 mg PO .COMPLEX #34 tab 07/09/20 07/21/20 07/21/20 08:00 Rx diphenhydramine HCl 25 mg capsule 25 mg PO ONCE #3 cap 07/09/20 07/21/20 07/22/20 05:30 Rx prednisone 50 mg tablet 50 mg PO .COMPLEX #5 tab 07/09/20 07/21/20 07/22/20 05:30 Rx Allergies Allergy/AdvReac Type Severity Reaction Status Date / Time morphine Allergy Unknown ADR/ALGY-Pa Verified 04/21/20 09:38 lpitations iodine Allergy Unknown Verified 07/08/20 11:27 Current Medications Current Medications Generic Name Dose Route Start Last Admin Trade Name Freq PRN Reason Stop Dose Admin Acetaminophen 650 mg 07/22/20 10:04 07/22/20 21:58 Acetaminophen 325 Mg Tablet PO 650 mg Q6H PRN Administration MILD PAIN Hydrocodone Bitart/Acetaminophen 1 tab 07/24/20 02:29 07/24/20 03:24 Hydrocodone-Acetaminophen 5-325 Mg Tablet PO 1 tab Q4H PRN Administration MODERATE PAIN Albuterol/Ipratropium 1 puff 07/23/20 20:20 07/24/20 08:25 Ipratropium-Albuterol 4 Gm Mdi INHALATION 1 puff QID.RESPIRATORY LIZZETTE Administration Alprazolam 0.25 mg 07/22/20 10:04 07/22/20 18:05 Alprazolam 0.25 Mg Tablet PO 0.25 mg TID PRN Administration ANXIETY Aspirin 81 mg 07/24/20 10:00 07/24/20 10:23 Aspirin 81 Mg Ec Tablet PO 81 mg DAILY LIZZETTE Administration Clopidogrel Bisulfate 75 mg 07/24/20 10:00 07/24/20 10:23 Clopidogrel 75 Mg Tablet PO 75 mg DAILY LIZZETTE Administration Famotidine 20 mg 07/24/20 09:30 07/24/20 10:05 Famotidine 20 Mg/2 Ml Inj IVP 20 mg Q12H LIZZETTE Administration Fentanyl 25 mcg 07/23/20 04:18 07/23/20 16:13 Fentanyl 50 Mcg/Ml Inj 2ml IVP 25 mcg Q2H PRN Administration SEVERE PAIN Furosemide 20 mg 07/23/20 09:00 07/23/20 08:52 Furosemide 20 Mg Tablet PO 20 mg DAILY LIZZETTE Administration Heparin Sodium (Beef Lung) 0 unit 07/23/20 19:59 07/23/20 21:39 Heparin 5,000 Unit/Ml Inj 1 Ml IV 4,750 unit PRN PRN Administration Heparin weight-base protocol Protocol Nitroglycerin/Dextrose 50 mg in 250 mls @ 0 mls/hr 07/22/20 12:15 07/23/20 23:41 Nitroglycerin Drip IV 0 mcg/min .Q0M LIZZETTE 0 mls/hr Titration Protocol Per Protocol Piperacillin Sod/Tazobactam 50 mls @ 12.5 mls/hr 07/23/20 20:00 07/24/20 07:16 Sod 3.375 gm/ Sodium Chloride IV 12.5 mls/hr Q12H LIZZETTE Administration Protocol Heparin Sodium/Sodium Chloride 25,000 unit in 500 mls @ 0 mls/hr 07/23/20 20:00 07/23/20 21:10 Heparin Drip IV 14.45 unit/kg/hr .Q0M LIZZETTE 27 mls/hr Administration Protocol Per Protocol Norepinephrine Bitartrate 4 mg 254 mls @ 0 mls/hr 07/24/20 05:45 07/24/20 05:50 / Dextrose IV 4 mcg/min .Q0M LIZZETTE 15.2 mls/hr Titration Protocol Per Protocol Albumin Human 25 gm in 100 mls @ 60 mls/hr 07/24/20 09:47 07/24/20 10:07 Albumin IV 07/24/20 11:26 60 mls/hr ONCE ONE Administration Insulin Aspart 0 unit 07/22/20 18:00 07/24/20 07:39 Insulin Aspart 100 Unit/1 Ml SUBCUT 10 unit WM&BEDTIME LIZZETTE Administration Protocol Isosorbide Mononitrate 30 mg 07/22/20 18:00 07/23/20 18:19 Isosorbide Mononitrate Er 30 Mg Tablet PO 30 mg BID LIZZETTE Administration Metformin HCl 500 mg 07/22/20 18:00 07/22/20 19:12 Metformin 500 Mg Tablet PO Not Given BID LIZZETTE Metoprolol Tartrate 25 mg 07/22/20 18:00 07/23/20 18:20 Metoprolol Tartrate 25 Mg Tablet PO 25 mg BID LIZZETTE Administration Nitroglycerin 0.4 mg 07/22/20 10:04 07/22/20 11:08 Nitroglycerin 0.4 Mg Sublingual Tablet SUBLINGUAL 0.4 mg Q5M PRN Administration chest pain Ondansetron HCl 4 mg 07/23/20 05:49 07/24/20 07:45 Ondansetron 2 Mg/Ml Sdv 2 Ml IVP 4 mg Q4H PRN Administration NAUSEA AND VOMITING Ranolazine 500 mg 07/23/20 09:00 07/24/20 10:02 Ranolazine (12hr) 500 Mg Tablet PO 500 mg BID LIZZETTE Administration Fluticasone/Salmeterol 1 puff 07/22/20 20:00 07/24/20 08:25 Fluticasone-Salmeterol 500-50 Diskus INHALATION 1 puff BID.RESPIRATORY LIZZETTE Administration Tamsulosin HCl 0.4 mg 07/23/20 09:00 07/23/20 08:51 Tamsulosin 0.4 Mg Capsule PO 0.4 mg DAILY LIZZETTE Administration PFSH Acute PFSH: Medical History ASHD (arteriosclerotic heart disease) Carotid stenosis, bilateral Diabetes Dizziness HTN (hypertension) Surgical History S/P CABG (coronary artery bypass graft) Two-vessel coronary bypass surgery Social History Smoking and tobacco status: former smoker Household members: family Marital status: service: No Current occupational status: retired Vitals/I&O/Wt Last Vital Signs Temp 98.2 F 07/22/20 06:34 Pulse 100 07/24/20 08:27 Resp 20 H 07/24/20 08:27 BP 77/64 07/24/20 02:00 Pulse Ox 98 07/24/20 08:27 07/23/20 07/24/20 07/24/20 22:59 06:59 14:59 Intake Total 439.4 / 589.4 768.63 / 1358.03 Balance 439.4 / -460.6 768.63 / 308.03 Physical Exam Narrative: EXAM NARRATIVE: Constitutional: Awake, comfortable HEENT: Wet mucosa, no jvp, non icteric Lungs: Bilaterally clear without discernible wheeze or rales in all lung zones CVS: S1 S2, no murmurs Abdo: Soft, BS ok Ext 4: Minimal edema, peripheral perfusion with no cyanosis Neurological: Grossly non-focal Urinary Catheter Management^: Quan: Cath Placed During This Visit: yes Urinary Catheter Date of Insertion: 07/24/20 Urinary Catheter Time of Insertion: 10:29 Data Micro: Micro: Microbiology 07/23/20 18:17 Blood Culture - Pr eliminary Blood SPECIMEN [facility] 07/23/20 18:15 Blood Culture - Pr eliminary Blood SPECIMEN [facility] A&P Additional A&P Information 1. Acute kidney injury Low urinary sodium despite recent exposure to diuretics, is consistent with prerenal azotemia likely related to the profound hypotension only now seeing. It is likely that early ATN will be setting in. He did receive intravenous contrast a few days ago. Continue Levophed to maintain MAP greater than 65 mmHg. I agree that IV hydration puts him at risk of further respiratory decline, and I am also keen to hold off on this. I am also keen to defer any further diuretic dosing for the time being. No further renal imaging is required as the ultrasound scan demonstrated no evidence of obstructive uropathy. We will check TSH, CPK levels. No indication for hemodialysis today, however, there is a risk of this in the next few days. Strict ins and outs Dose medications for GFR less than 15 Avoid usual nephrotoxic agents. 2. Electrolytes. Anion gap metabolic acidosis is noted, defer alkalinization for the time being given the avoidance of sodium. Sodium and potassium levels are obviously aberrant but noncritical, we will continue to monitor closely. 3. Shock Given the bump in his white count, sepsis is being evaluated, especially given evidence of pneumonia on chest x-ray. He is on antibiotics for this. Given recent cardiac procedure, would consider repeating the echocardiogram. Chemistry is also consistent with adrenal insufficiency, will check stat random cortisol and give him stress dose steroids until the situation is clarified. 4. Respiratory distress Chest x-ray is consistent with pneumonia, defer to IV diuretics as mentioned above. 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
[2020-07-24 12:01] LABS: Lactate Dehydrogenase 1230 U/L (135-225)
[2020-07-24 12:02] LABS: Creatine Phosphokinase 2631 U/L (39-308)
[2020-07-24] MEDS: hydrocortisone 100 mg/2 mL SDV 50 MG IV (14:23)
[2020-07-24 14:34] LABS: Alanine Aminotransferase 268 U/L (0-41); Albumin Level 4.3 g/dL (3.5-5.2); Alkaline Phosphatase 78 IU/L (40-130); Anion Gap 23.9 (5-19); Aspartate Amino Transferase 520 U/L (0-40); Blood Urea Nitrogen 52 mg/dL (8-23); Calcium 8.2 mg/dL (8.5-10.5); Carbon Dioxide 16 mmol/L (22-29); Chloride 96 mmol/L (98-107); Globulin 2.5 g/dL (1.3-4.6); Glucose 205 mg/dL (65-115); Osmolality Calculated 290 mOsm/kg (285-295); Potassium 5.9 mmol/L (3.5-5.1); Sodium 130 mmol/L (136-145); Total Bilirubin 1.9 mg/dL (0.15-1.2); Total Protein 6.8 g/dL (6.6-8.7)
[2020-07-24 14:47] LABS: Thyroid Stimulating Hormone 3.64 uIU/mL (0.27-4.20)
[2020-07-24 14:54] LABS: Urine Creatinine 106 mg/dL (39-259); Urine Random Sodium 26 mmol/L
[2020-07-24] MEDS: heparin drip 25,000 UNIT/500 ML PREMIX 27 UNIT IV (14:58)
[2020-07-24 15:18] LABS: Bilirubin Urine Neg (Negative); Blood Urine 3+ (Negative); Glucose Urine UA Norm (Normal); Ketones Urine 1+ (Negative); Nitrate Urine Negative (Negative); Protein Urine 2+ (Negative); Urine Appearance Cloudy (CLEAR); Urine Color Amber (Yellow); Urobilinogen Urine Norm (Negative); pH Urine 5 (5-7)
[2020-07-24 15:19] LABS: Add Urine Culture? No; Add Urine Microscopic? YES; Amorphous Sediment Urine 2+ /hpf; Bacteria Urine 1+ /hpf; Leukocyte Esterase Urine Trace (Negative); RBC Urine 25-40 /hpf (0-2)
[2020-07-24 15:20] LABS: Creatine Phosphokinase 2644 U/L (39-308)
[2020-07-24 15:22] LABS: Cortisol Random 74.78 ug/dL (2.47-19.5)
[2020-07-24 16:09] LABS: Partial Thromboplastin Time 101.2 SECONDS (23.9-36.7)
[2020-07-24] MEDS: sodium chloride 0.9% 500 ML 999 ML IV (16:45)
--- NOTE | 2020-07-24 16:55 | PC.NURSE ---
Got approval for daughter to come in with n 95 mask on to see pt as condition was worsening .. was later upset wanting other family to come explained needed only one at this time .. then when doctor back in to talk with her requested that me and other nurse to step out of room
--- NOTE | 2020-07-24 17:12 | P.PN_ITS ---
Subjective Subjective: Interval history: Revisited patient as he became hypotensive and started on bolus of IV fluid along with Levophed and vasopressin. Dr. Ni and myself as long discussion with the patient and patient daughter by bedside. Vitals/I&O/Wt Last Vital Signs Temp 98.2 F 07/22/20 06:34 Pulse 85 07/24/20 16:57 Resp 18 07/24/20 16:00 BP 77/64 07/24/20 02:00 Pulse Ox 97 07/24/20 16:57 07/24/20 07/24/20 07/24/20 06:59 14:59 22:59 Intake Total 768.63 / 1358.03 1019.583 / 1019.583 93.953 / 1113.536 Balance 768.63 / 308.03 1019.583 / 1019.583 93.953 / 1113.536 Physical Exam Narrative: EXAM NARRATIVE: GENERAL: Patient is awake drowsy and diaphoretic NECK: No jugular vein distension. HEENT: No cyanosis. No icterus. No pallor. HEART: Regular S1 and S2. No murmur, rub or gallop. LUNGS: decreased breath sounds bilaterally. ABDOMEN: Soft, nontender and nondistended. Positive bowel sounds. No guarding, rebound or tenderness. CENTRAL NERVOUS SYSTEM: Grossly nonfocal. EXTREMITIES: Lower extremities without edema bilaterally. Urinary Catheter Management^: Quan: Cath Placed During This Visit: yes Urinary Catheter Date of Insertion: 07/24/20 Urinary Catheter Time of Insertion: 10:29 Data : 07/24/20 03:00 07/24/20 14:10 Micro: Microbiology 07/23/20 18:17 Blood Culture - Preliminary Blood SPECIMEN COLLECTED 07/23/20 18:15 Blood Culture - Preliminary Blood SPECIMEN COLLECTED A&P Assessment and plan (1) ASHD (arteriosclerotic heart disease): For worsening of unstable angina patient is status post drug-eluting stent to proximal to mid diagonal branch for significant 90% eccentric highly calcified stenosis. Post PCI patient was taken back to the Traffic And Transport Planner due to recurrent chest pain noted to have patent stents. Patient has been loaded with 300 mg of Plavix. Later patient did fine however towards the evening patient went into respiratory distress. He was noted to be in pulmonary edema BiPAP was started IV Lasix was given he had short runs of ventricular tachycardia he was given metoprolol. Currently he is stabilizing blood pressure is stable he denies any chest pain and now on BiPAP he is feeling better hopefully with good diuresis left ventricular end-diastolic pressure will also reduce and he will start feeling better. We will continue to monitor him at this point we may will move him to ICU. 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 His breathing is better. There is also question regarding prostate enlargement and retention of the urine. We will ask for bladder scan. I will get x-ray chest CBC BMP and BNP. He has been given another round of IV Lasix. Twelve-lead EKG will be obtained. Currently he appeared to be stable. Patient has extensive coronary artery disease with highly calcified vessel he has CABG in 2019. During this angiogram he was noted to have chronically occluded SVG to RCA RCA is highly calcified proximally occluded vessel not amenable to intervention. Diagonal was very torturous highly calcified vessel not amenable to atherectomy however we did extensive balloon angioplasty followed by 2 overlapping stent placement postdilated at high NEYMAR with noncompliant balloon for proper approximation. We will continue aspirin Plavix I will add ranolazine patient has extensive multiple tandem lesion in the LAD. Dr. Mejia's note confirmed the high calcification of the vessels which in his case unfortunately is a long-term problem. He also has small vessel disease and element of anxiety. At this point I will add ranolazine. Continue to optimize medicine including beta-rosy isosorbide mononitrate. Further plan will be advised as per progress of the patient. I have detailed discussion with the patient in yesterday with his family. Their full understanding of the disease. On today's visit dated 07/24/2020 As defined above this morning patient had episode of hypotension. Started on Levophed currently appears to be stable laying in the bed he is in sinus tach. Creatinine has worsened suggestive of contrast-induced nephropathy. X-rays are consistent with more of pneumonia he is on IV antibiotics for that. Covid rule helped has been sent out. Twelve-lead EKG was not suggestive of acute coronary syndrome. He is status post PCI to diagonal branch. His saphenous venous graft to RCA is closed. RCA is chronically occluded. LAD is highly calcified severely diseased vessel with tandem stenosis. YOUNG to LAD is patent but we are not sure how much it is supplying the LAD since due to extensive disease in the torres martinez vessel. Diagonal which was calcified and stenotic was treated with 2 overlapping drug-eluting stents for recurrent unstable angina. Today I will al so request nephrology to help us in his case for ALYSSA. We appreciate medicine input. Echocardiogram is requested to assess ejection fraction and any effusion On today's visit at 4 PM limited echocardiogram suggestive of severely depressed ejection fraction 38%. Patient had bypass performed in 2019, at that time his ejection fraction was normal 78% during this angiogram he was noted to have c hronically occluded SVG to RCA, RCA is known to be chronically occluded which is a highly calcified vessel. Circumflex nondominant, left main did not show significant stenosis LAD has diffuse highly calcified disease with tandem stenosis YOUNG to LAD is patent but not sure how much it is supplying due to widespread disease and a diffuse session. Diagonal branch is moderate size and caliber vessel it has proximal highly torturous calcified lesion which was treated with 2 overlapping drug stents. It is my suspicion that in between 2019 until now patient ejection fraction has deteriorated due to severely calcified LAD disease not well perfused through YOUNG. It is the reason we opened up the diagonal. Post PCI patient course is complicated with sepsis/pneumonia/UTI/Covid for which he was shifted to ICU and treated aggressively with IV antibiotics. Medicine and nephrology was also consulted due to constant worsening of patient condition such as hypotension renal failure and hyperkalemia. Patient white cell count remains high with neutrophil shift. Limited echo rule out pericardial effusion. Patient and family has been informed at different interval regarding diagnosis care and plan. Currently he is critical, DR Peña our medicine attending he is try to determine patient C ODE STATUS as they have to decide regarding possible intubation CPR and aggressive management. Patient has multiorgan failure prognosis of which is very poor. We will continue to monitor and treat. Continue Plavix aspirin statin Status: Acute (2) Pneumonia: As per medicine. Continue IV antibiotics. Perhaps sepsis is also an element. Patient is on Levophed if he become more tachycardic I may will switch him to vasopressin. Covid test is pending Status: Acute Qualifiers: Laterality: unspecified laterality Lung location: unspecified part of lung Pneumonia type: due to unspecified organism Qualified Code(s): J18.9 - Pneumonia, unspecified organism (3) Contrast dye induced nephropathy: Most likely combination of ATN and contrast-induced nephropathy. 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
--- NOTE | 2020-07-24 17:57 | XRR_ITS ---
PROCEDURE INFORMATION: Exam: XR Chest Exam date and time: 07/24/2020 6:33 PM Age: 74 years old Clinical indication: Device placement; Picc; Patient HX: Limited HX due to PT condition, unable to remove leads, PT in vtach; Additional info: Line TECHNIQUE: Imaging protocol: XR of the chest. Views: 1 view. COMPARISON: CR (CHEST, ) 07/24/2020 8:41 AM FINDINGS: Tubes, catheters and devices: Left IJ central line tip over the proximal SVC. Lungs: Unremarkable. No consolidation. Pleural spaces: Unremarkable. No pleural effusion. No pneumothorax. Heart/Mediastinum: Stable CABG procedure. Bones/joints: Unremarkable. Other findings: Patient rotation to the right. XR/XR chest 1V portable [id number] IMPRESSION: 1. Stable CABG procedure. 2. Left IJ central line tip over the proximal SVC.
[2020-07-24] MEDS: neomycin-poly-bacitracin oint 0.9 gm Pkt 1 APPLIC TOPICAL (17:58)
--- NOTE | 2020-07-24 18:06 | PM.ACPR ---
Procedure/Consent Time out: Time Out Performed: Yes Consent: Consent for Procedure: Consent obtained from other (indicate) (Daughter Corrie Enrique) and Risks & Benefits reviewed Acute Procedures Central Line Placement^: Left IJ: Time out performed: Yes Patient placed on monitor/pulse ox: Yes prep: mask, gown, gloves and other (cap) Central line prep: Chlorhexidine scrub Local anesthesia used: lidocaine 1% Amount of anesthesia used (ml): 1.5 Ultrasound used for placement: Yes Central line lumen inserted: triple Post procedure: sutured in place, good blood return, all ports aspirated, flushed, capped and sterile dressing applied Post procedure x-ray: tip of catheter in good position and no pneumothorax seen Patient tolerated procedure: well and no complications Additional comments: Assisted by Dr Sherman Epistaxis Control: Time out performed: Yes
[2020-07-24] MEDS: EPINEPHrine 2.5 MG in sodium chloride 0.9% 250 ML 18.2 MG IV (18:21)
--- NOTE | 2020-07-24 18:23 | PC.NURSE ---
Blood pressure declining at 1530. Levophed titrated to 12mcg/min Dr. Bass notified. Daughter called by Nurse ALFIE and reported to bedside. Dr. Bass and Dr. Figueroa reported to bedside to discuss plan of care with Daughter. Pt O2 began to desat shortly after. Mildred, RT placed pt on bipap FIO2 at 50%. BP dropping shortly after see V/S as documented. Vasopressin ordered per Dr. Bass. Consent form signed and Central line placed by Dr. Bass with Dr. Oneal at bedside. Chest x-ray order to secure placement. BP unable to read, Levophed titrated per protocol, see documentation. After placement of central line BP remains low Dr. Bass order Epi at this time. Pt heart monitor reading V-tach, 10 beat run at 1836. notified ordered Aminodarone. Pt Heart monitor showing asystole for approximately 3 seconds at 1845, Dr. Bass notified orders to hold amiodarone. Pt vitals WNL at this time. Patient's Daughter, Dr. Figueroa, Dr. Bass, Nurse ALFIE, Nurse Vandana, and this nurse at bedside discussing plan of care.
[2020-07-24] MEDS: DOPamine drip 400 MG/250 ML PREMIX 17.5 MG IV (19:48)
--- NOTE | 2020-07-24 19:51 | USR_ITS ---
PROCEDURE INFORMATION: Exam: US Retroperitoneal; Complete; Kidneys and Bladder Exam date and time: 07/24/2020 7:08 AM Age: 74 years old Clinical indication: Abnormal findings; Abnormal lab test; Abnormal kidney function lab tests; Additional info: Matt - assess for any obstructive uropathy TECHNIQUE: Imaging protocol: Real-time ultrasound of the retroperitoneum with image documentation. Complete exam focused on the kidneys and bladder. COMPARISON: CT abdomen pelvis w con* [id number] 10/02/2015 10:29 AM FINDINGS: Right kidney: Normal. There is a small cyst in the right lower kidney measuring 2.0 by 2.2 x 2.1 cm. No stones. No hydronephrosis. Left kidney: Normal. No stones. No hydronephrosis. Urinary bladder: Unremarkable.
[2020-07-24 20:15] LABS: Alanine Aminotransferase 349 U/L (0-41); Alkaline Phosphatase 74 IU/L (40-130); Anion Gap 32.6 (5-19); Aspartate Amino Transferase 588 U/L (0-40); Blood Urea Nitrogen 56 mg/dL (8-23); Calcium 7.7 mg/dL (8.5-10.5); Chloride 94 mmol/L (98-107); Globulin 2.5 g/dL (1.3-4.6); Glucose 266 mg/dL (65-115); Osmolality Calculated 293 mOsm/kg (285-295); Sodium 129 mmol/L (136-145); Total Protein 6.5 g/dL (6.6-8.7)
[2020-07-24 20:25] LABS: Carbon Dioxide 9 mmol/L (22-29); Potassium 6.6 mmol/L (3.5-5.1)
--- NOTE | 2020-07-24 20:51 | USR_ITS ---
PROCEDURE INFORMATION: Exam: US Duplex Lower Extremity Veins, Bilateral Exam date and time: 07/24/2020 7:08 AM Age: 74 years old Clinical indication: Other: Dypsnea; Additional info: Assess for vte TECHNIQUE: Imaging protocol: Real-time duplex ultrasound of the extremities with 2-D kwong scale, color Doppler flow and spectral waveform analysis with image documentation. Complete exam focused on the bilateral lower extremity veins. COMPARISON: No relevant prior studies available. FINDINGS: Right deep veins: Unremarkable. The common femoral, femoral, proximal profunda femoral and popliteal veins are patent without thrombus. Normal Doppler waveforms. Normal compressibility and/or augmentation response. Right superficial veins: Saphenofemoral junction is patent without thrombus. Left deep veins: Unremarkable. The common femoral, femoral, proximal profunda femoral and popliteal veins are patent without thrombus. Normal Doppler waveforms. Normal compressibility and/or augmentation response. Left superficial veins: Saphenofemoral junction is patent without thrombus. Soft tissues: Unremarkable. US/[place] [id number] IMPRESSION: No evidence of deep vein thrombosis.
--- NOTE | 2020-07-24 21:54 | PM.EVENT ---
Event Note Event Note: CHRISTINE NUNEZ was called for PEA When I entered the room, he was in asystole 1 dose of epi was given along bicarb and he was intubated, no meaningful recovery, prior to CHRISTINE NUNEZ he received treatment for hyperkalemia He was pronounced at 2123 on 07/24/2020, Dr. Gutiérrez was also present, family updated note & summary to be done by Dr. Bass
--- NOTE | 2020-07-24 21:55 | PM.ACPR ---
Procedure/Consent Consent: Consent for Procedure: Emergency procedure Procedure Narrative: Indication: CODE BLUE Goals of care: No CPR but family was okay with intubation and defibrillation Rhythm was asystole and PEA, nonshockable rhythm Acute Procedures Intubation: Time out performed: Yes Sedative: none Paralytic: other (None patient was in asystole CODE BLUE) Laryngoscope: Sarahi ET tube size: 8 Tube secured depth (cm): 25 Tube secured location: lips Tube placement confirmation: visualized tube passing through cords, equal breath sounds bilaterally and color change noted Patient tolerated procedure: other (This intubation was done in CODE BLUE) Intubation complications: other (No meaningful recovery after intubation, no ROSC, patient was pronounced at 2124)
[2020-07-24 22:49] LABS: Total Bilirubin 2.2 mg/dL (0.15-1.2)
--- NOTE | 2020-07-24 23:26 | PC.NURSE ---
[facility] 190 Bedside report done with RIYA JUDGE. Dr. Bass also at bedside with new orders. Patient is on BIPAP at 50% FiO2. Patient is responding to nurse and requesting water. Patients oxygen decreases rapidly to mid 60s when BIPAP removed for short time, so patient disconnected for mouth swab and BIPAP placed back on. Patient had brief run of asystole for approximately 5 seconds and returned to idioventricular rhythm. Epinephrine running at 20 mcg/min, levophed running at 25 mcg/min, vasopressin at 0.1 units/hour, and heparin at 21 mL/hour. All medications beyond protocol max rate approved by Dr. Bass at bedside. New orders for dopamine drip to be started and linezolid.
--- NOTE | 2020-07-24 23:57 | PC.NURSE ---
CRITICAL LAB Patients potassium back at 6.6 and CO2 at 9. Dr. Richardson put in new orders for amp of calcium gluconate, sodium bicarb, 10 units IV insulin and amp of 50% dextrose. Unable to give these medications, see next nurses note.
--- NOTE | 2020-07-24 23:58 | P.DES_ITS ---
Discharge Providers DDS Date of Admission: 07/23/20 13:52 Date Summary Completed: 08/04/20 Attending Provider at Admission: Martha Figueroa MD Time of : 21:24 Attending Provider at Discharge: Martha Figueroa MD Primary Care Provider: Michael Garcia MD DS Diagnoses Hospital Diagnoses (1) ASHD (arteriosclerotic heart disease): (2) Pneumonia: Qualifiers: Laterality: unspecified laterality Lung location: unspecified part of lung Pneumonia type: due to unspecified organism Qualified Code(s): J18.9 - Pneumonia, unspecified organism (3) Contrast dye induced nephropathy: Reason for Visit Reason for Visit: [facility] Summary Date and Time of Date of : 07/24/20 Time of : 21:24 Summary Summary: This is a complicated patient with prior history of severe coronary artery disease status post CABG in 2019. Post CABG patient did not improve much because of continuation of crippling angina. His medicines were optimized, he was enrolled in rehab program however due to worsening of unstable angina patient underwent coronary angiogram, he was noted to have severely disease highly calcified LAD with tandem stenosis, RCA was severely calcified chronically occluded vessel while saphenous vein graft to RCA was occluded, left circumflex has luminal irregularity without significant stenosis. Left main has luminal irregularity. Diagonal branch was a moderate size and caliber but highly tortuous and calcified vessel , it was thought to be culprit treated with drug-eluting stents to proximal to mid diagonal branch for significant 80% eccentric highly calcified stenosis. Post PCI patient was taken back to the Computer Peripheral Equipment Operator due to recurrent chest pain noted to have patent stents. His other comorbidities are hypertension hyperlipidemia diabetes mellitus COPD heart failure renal dysfunction. Postop course was complicated with possible aspirative pneumonia sepsis and contrast-induced nephropathy. He was treated with broad-spectrum antibiotics IV fluid and under the care of c unix developer. Despite of all the measures patient continues to deteriorate. He was started on multiple pressors but due to advanced nature of sepsis his blood pressure remains very low. I personally and my other colleagues have multiple discussion with the patient family regarding plan and treatment. Family and patient were in agreement. On the evening of July 24 CHRISTINE NUNEZ was called. Patient was treated according to ACLS protocol. Despite of at most effort patient . Cause of was sepsis. Additional Data Confirmation of as documented by pronouncing clinician: no pulse, no respirations, no heart sounds and pupils fixed and dilated Family: at bedside and contacted Additional persons at bedside: nursing staff Attending/PCP notified?: I am attending Was code activated?: Yes Autopsy requested?: No Advance directives?: No Hospice patient?: No Discharge Plan Discharge Patient Disposition: At Medical Facility Condition: Stable Prescriptions: No Action glimepiride 4 mg tablet 4 mg PO BID RF: 0 metformin 500 mg tablet 500 mg PO BID RF: 0 omeprazole 20 mg capsule,delayed release(DR/EC) 20 mg PO DAILY RF: 0 losartan-hydrochlorothiazide 100-25 mg tablet 1 tab PO DAILY RF: 0 simvastatin 40 mg tablet 40 mg PO DAILY RF: 0 spironolactone 25 mg tablet 25 mg PO DAILY RF: 0 tamsulosin 0.4 mg capsule 0.4 mg PO DAILY RF: 0 Combivent Respimat 20-100 mcg/actuation mist 1 puff INHALATION Q6H RF: 0 fluticasone propion-salmeterol [Advair Diskus] 500-50 mcg/dose blister with device 1 inh INHALATION BID RF: 0 metoprolol tartrate 25 mg tablet 25 mg PO BID Qty: 180 RF: 3 furosemide 20 mg tablet 20 mg PO DAILY Qty: 30 RF: 3 potassium chloride 8 mEq tablet extended release 8 meq PO DAILY Qty: 30 RF: 3 isosorbide mononitrate 30 mg tablet extended release 24 hr 30 mg PO BID Qty: 60 RF: 0 magnesium oxide 400 mg magnesium tablet 400 mg PO DAILY Qty: 90 RF: 0 nitroglycerin [Nitrostat] 0.4 mg tablet, sublingual 0.4 mg SUBLINGUAL Q5M PRN (Reason: chest pain) Qty: 25 RF: 3 clopidogrel 75 mg tablet 300 mg PO .COMPLEX Qty: 34 RF: 3 prednisone 50 mg tablet 50 mg PO .COMPLEX Qty: 5 RF: 0 diphenhydramine HCl [Allergy (diphenhydramine)] 25 mg capsule 25 mg PO ONCE Qty: 3 RF: 0 Patient Instructions: Opioid Safety Probable Cause of Probable cause of : Cardiac arrest DS Attestations Time Spent in /Discharge Care*: critical care time (60) Critical Care Time (min): 60 Quality - AMI: AMI present?: No Quality - Stroke: CVA present?: No Quality - VTE: VTE present?: Yes Coding Level of Care Code Acute Provider Relations Consultant for Chg Fwd Diagnoses ASHD (arteriosclerotic heart disease) I25.10 Pneumonia J18.9 Laterality: unspecified laterality Lung location: unspecified part of lung Pneumonia type: due to unspecified organism Contrast dye induced nephropathy N14.1; T50.8X5A
--- NOTE | 2020-07-25 00:18 | PC.NURSE ---
Addendum entered by Reece Sigala RN 07/25/20 00:23: Second Verified Asystole via ausculation for apex for 60 seconds. Original Note: PATIENT At 2118, nurse preparing medications, observed asystole on monitor. Patient is pulseless, code blue called. TOD 2123. 2nd nurse verification done with RIYA Newell via apical auscultation. See code blue sheet for additional details. Patients daughter and granddaughter at bedside and requesting everything except CPR as discussed with Dr. Bass on prior shift.
--- NOTE | 2020-07-25 00:24 | PC.NURSE ---
HOME Patients family decided on [facility]. Body transfer is signed. 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 MTS called by house officer.
--- NOTE | 2020-07-25 02:29 | PC.NURSE ---
Call received from [facility] (Connie Lei) who declined body tissue for MTS purpose. Call received from [facility] also declining eye tissue.
--- NOTE | 2020-07-25 02:31 | PC.NURSE ---
[facility] notified of family request for services.
[2020-07-25 16:52] LABS: Quest SARS-CoV-2 RNA NOT DETECTED (NOT DETECTED)
== END 2020-07-24 21:24 | disposition expired | DRG 246 ==
LOC: CSU 06:55 → ICU 20:40
PROVIDERS: Internal Medicine; Internal Medicine Nephrology; Admitting Provider Internal Medicine Cardiovascular Disease; PCP Family Medicine; Visit Provider Internal Medicine Cardiovascular Disease
PROC: 027035Z Dilation of Coronary Artery, One Artery with Two Drug-eluting Intraluminal Devices, Percutaneous Approach (ICD-10-PCS; principal; 2020-07-22 07:00)
PROC: 027035Z Dilation of Coronary Artery, One Artery with Two Drug-eluting Intraluminal Devices, Percutaneous Approach (ICD-10-PCS; 2020-07-22 07:00)
DX: I25.110 Atherosclerotic heart disease of native coronary artery with unstable angina pectoris (principal); A41.9 Sepsis, unspecified organism; J69.0 Pneumonitis due to inhalation of food and vomit; R65.21 Severe sepsis with septic shock; N17.0 Acute kidney failure with tubular necrosis; I47.2 Ventricular tachycardia; N39.0 Urinary tract infection, site not specified; E87.2 Acidosis; I25.82 Chronic total occlusion of coronary artery; Z95.1 Presence of aortocoronary bypass graft; I25.710 Atherosclerosis of autologous vein coronary artery bypass graft(s) with unstable angina pectoris; I46.9 Cardiac arrest, cause unspecified; I10 Essential (primary) hypertension; E78.5 Hyperlipidemia, unspecified; D64.9 Anemia, unspecified; E11.9 Type 2 diabetes mellitus without complications; I65.23 Occlusion and stenosis of bilateral carotid arteries; R09.02 Hypoxemia; N40.1 Benign prostatic hyperplasia with lower urinary tract symptoms; R33.9 Retention of urine, unspecified; F41.9 Anxiety disorder, unspecified; R42 Dizziness and giddiness; Z87.891 Personal history of nicotine dependence; E87.5 Hyperkalemia; N14.1 Nephropathy induced by other drugs, medicaments and biological substances; T50.8X5A Adverse effect of diagnostic agents, initial encounter; I95.9 Hypotension, unspecified
CPT/HCPCS: 36415; 36416; 36600; 51702; 70450; 71045; 71250; 76770; 76857; 80048; 80051; 80053; 81001; 82009; 82247; 82248; 82330; 82533; 82550; 82570; 82805; 82962; 83010; 83605; 83615; 83880; 84300; 84443; 85025; 85730; 87040; 87635; 87804; 93005; 93308; 93455; 93970; 94640; 94660; 96372; C1725; C1769; C1874; C1887; C1894; C9600; G0378; J0171; J1265; J1644; J1720; J1815; J1940; J2250; J2405; J2543; J3010; J3490; J3535; J7030; J7040; J7050; P9047; Q0163; Q3014; Q9967